=== PATIENT | female | born 1975 | race Caucasian/White ===

== ENCOUNTER 2017-01-06 14:32 | Inpatient (IN) | payer BC, OTHER ==
[~2017-01-06] VITALS: Ht 172.7 cm; Wt 86.3 kg
[2017-01-06] VITALS (12 sets, daily range): BP systolic 100–136; BP diastolic 62–85; PULSE 58–136; RESP 16–20; TEMP 98.1–98.8; O2SAT 98–100
[~2017-01-06 14:32] MED LIST: LORA-474 PO; Z.0.NO CURRENT MEDS; ZOFR4TAB3 SL
[2017-01-06] MEDS ORDERED: AMIODARONE INJ 150 MG in DEXTROSE 5% IN WATER 100ML INJ 97 ML IV ONE ×2 (15:00)
[2017-01-06] MEDS ORDERED: AMIODARONE INJ 900 MG in D5W 500 ML (EXCEL BAG) 482 ML IV SCH (15:00)
[2017-01-06 15:02] LABS: AUTOMATED NEUTROPHIL # 5.1 TH/MM3 (1.8-7.7); BASOPHIL # 0.3 TH/MM3 (0-0.2); BASOPHIL % 4.4 % (0.0-2.0); EOSINOPHIL # 0.1 TH/MM3 (0-0.4); EOSINOPHIL % 0.7 % (0.0-4.0); HEMO FLAGS DIFF FINAL; LYMPH % 21.4 % (9.0-44.0); LYMPHOCYTE # 1.7 TH/MM3 (1.0-4.8); MEAN CELL VOLUME 76.9 FL (80.0-100.0); MEAN CORPUSCULAR HGB CONC 32.5 % (32.0-36.0); MONO % 7.4 % (0.0-8.0); NEUT % 66.1 % (16.0-70.0); PLATELET COUNT 298 TH/MM3 (150-450); RED BLOOD COUNT 4.29 MIL/MM3 (4.00-5.30); RED CELL DISTRIBUTION WIDTH 17.1 % (11.6-17.2); WHITE BLOOD COUNT 7.8 TH/MM3 (4.0-11.0)
--- NOTE | 2017-01-06 15:03 | PD ---
HPI Chief Complaint: Cardiac Complaint Time Seen by Provider: 14:41 Travel History International Travel<30 days: No Contact w/Intl Traveler<30days: No Traveled to known affect area: No History of Present Illness HPI This patient is a critical care patient brought in by paramedics. She is a previously healthy 41-year-old who was exercising this morning when she became dizzy and lightheaded. Spell lasted about 5-10 minutes but resolved spontaneously with rest. She did well for a few hours during the middle of the day. She was picking her child up at school and she felt dizzy and lightheaded and felt like she was going to pass out. She had a presyncopal episode and a bystander saw her and called paramedics. They found her in A. fib with RVR that quickly deteriorated to wide complex ventricular tachycardia. She flipped in and out between those 2 rhythms several times. She was given 2 g IV magnesium. Her longest stretch was 58 beats of wide complex V. tach. Upon arrival she says she feels improved. She has A. fib with RVR rate of 1:30 and blood pressure 1:15 systolic. Symptoms are severe. Symptoms partially alleviated by rest and magnesium. Duration one day. She did not have any true syncope or chest pain PFSH Past Medical History Gastrointestinal Disorders: Yes (IBS) Inguinal Hernia: Yes (RT 1986) Migraines: Yes Seizures: Yes : 5 Para: 3 Miscarriage: 2 : 0 Past Surgical History Abdominal Surgery: Yes (R ING HERNIA) Cholecystectomy: Yes (04/09/2013) Other Surgery: Yes ( BREAST AUGMENTATION 2004 & 2010) Social History Alcohol Use: No Tobacco Use: No Substance Use: No Allergies-Medications (Allergen,Severity, Reaction): Coded Allergies: No Known Allergies (Verified , 06/04/13) Reported Meds & Prescriptions Reported Meds & Active Scripts Active Review of Systems General / Constitutional: No: Fever Eyes: No: Visual changes HENT: Positive: Lightheadedness, No: Headaches Cardiovascular: Positive: Palpitations, Irregular Rhythm, Tachycardia, No: Chest Pain or Discomfort Respiratory: No: Shortness of Breath Gastrointestinal: No: Abdominal Pain Genitourinary: No: Dysuria Musculoskeletal: Positive: Weakness, No: Pain Skin: No Rash Neurologic: Positive: Weakness, Dizziness Psychiatric: No: Depression Endocrine: No: Polydipsia Hematologic/Lymphatic: No: Easy Bruising Physical Exam Narrative GENERAL: Well-nourished, well-developed patient with generalized weakness and lightheadedness. SKIN: Warm and dry. HEAD: Atraumatic. Normocephalic. EYES: Pupils equal and round. No scleral icterus. No injection or drainage. ENT: No nasal bleeding or discharge. Mucous membranes pink and moist. NECK: Trachea midline. No JVD. CARDIOVASCULAR: Irregularly irregular rhythm. No murmur appreciated. Rate of 130 RESPIRATORY: No accessory muscle use. Clear to auscultation. Breath sounds equal bilaterally. GASTROINTESTINAL: Abdomen soft, non-tender, nondistended. Hepatic and splenic margins not palpable. MUSCULOSKELETAL: No obvious deformities. No clubbing. No cyanosis. No edema. NEUROLOGICAL: Awake and alert. No obvious cranial nerve deficits. Motor grossly within normal limits. Normal speech. PSYCHIATRIC: Appropriate mood and affect; insight and judgment normal. Data Data Last Documented VS Vital Signs Date Time Temp Pulse Resp B/P Pulse Ox O2 Delivery O2 Flow Rate FiO2 01/06/17 15:27 120 20 111/83 98 Room Air 01/06/17 15:14 2 01/06/17 14:35 98.8 Orders Iv Access Insert/Monitor (01/06/17 14:45) Complete Blood Count With Diff (01/06/17 14:45) Basic Metabolic Panel (Bmp) (01/06/17 14:45) Magnesium (Mg) (01/06/17 14:45) Bulk Sausage Casing Tier Off / Telemetry JOHN.Q8H (01/06/17 14:45) ^ Medication Alert (01/06/17 14:47) ^ Discontinue (01/06/17 14:47) Amiodarone Inj (Cordarone Inj) (01/06/17 15:00) Amiodarone Inj (Cordarone Inj) (01/06/17 15:00) Vital Signs (Adult) JOHN.Q4H (01/06/17 14:47) Admit Order (Ed Use Only) (01/06/17 15:32) Labs Laboratory Tests Test 01/06/17 14:51 White Blood Count 7.8 TH/MM3 Red Blood Count 4.29 MIL/MM3 Hemoglobin 10.7 GM/DL Hematocrit 33.0 % Mean Corpuscular Volume 76.9 FL Mean Corpuscular Hemoglobin 25.0 PG Mean Corpuscular Hemoglobin 32.5 % Concent Red Cell Distribution Width 17.1 % Platelet Count 298 TH/MM3 Mean Platelet Volume 8.4 FL Neutrophils (%) (Auto) 66.1 % Lymphocytes (%) (Auto) 21.4 % Monocytes (%) (Auto) 7.4 % Eosinophils (%) (Auto) 0.7 % Basophils (%) (Auto) 4.4 % Neutrophils # (Auto) 5.1 TH/MM3 Lymphocytes # (Auto) 1.7 TH/MM3 Monocytes # (Auto) 0.6 TH/MM3 Eosinophils # (Auto) 0.1 TH/MM3 Basophils # (Auto) 0.3 TH/MM3 CBC Comment DIFF FINAL Differential Comment Sodium Level 139 MEQ/L Potassium Level 3.6 MEQ/L Chloride Level 105 MEQ/L Carbon Dioxide Level 23.1 MEQ/L Anion Gap 11 MEQ/L Blood Urea Nitrogen 20 MG/DL Creatinine 0.89 MG/DL Estimat Glomerular Filtration 70 ML/MIN Rate Random Glucose 114 MG/DL Calcium Level 8.6 MG/DL Magnesium Level 2.3 MG/DL MDM Medical Decision Making Medical Screen Exam Complete: Yes Emergency Medical Condition: Yes Medical Record Reviewed: Yes Differential Diagnosis Ventricular tachycardia, A. fib with RVR, SVT Narrative Course I have reviewed the patient's electronic medical record. Patient was last in 2012 with gastroenteritis. I reviewed the stone mill operator cardiac tracings which do show A. fib with RVR intermixed with spells of wide complex ventricular tachycardia 2 IVs placed I reviewed her EKG which shows A. fib with RVR She is on constant telemetry monitoring which shows A. fib with RVR CBC is normal with Metabolic profile is normal Magnesium level is normal I initiated amiodarone bolus of 150 mg over 10 minutes followed by amiodarone drip protocol I reviewed the case in detail with sleeping bag filler on-call Dr. Jaylan Aadms who agrees with above management He recommends admission to [facility] at the main hospital and he will be a philatelic consultant Patient is critically ill with unstable arrhythmias. Therefore rechecking her frequently, multiple times. 3:30 PM her heart rate is 100 A. fib She is awake and alert and has had no ventricular tachycardia since initiation of amiodarone drip I reviewed with hospitalist who will admit and consult cardiology Critical Care Narrative Aggregate critical care time was 45 minutes. Time to perform other separately billable procedures was not included in the critical care time. My time did not include minutes spent treating any other patients simultaneously or on activities that did not directly contribute to the patient's treatment. The services I provided to this patient were to treat and/or prevent clinically significant deterioration that could result in: Cardiopulmonary arrest, congestive heart failure, I provided critical care services requiring my management, as noted below: Chart data review, documentation time, medication orders and management, vital sign assessments/reviewing monitor data, ordering and reviewing lab tests, ordering and interpreting/reviewing x-rays and diagnostic studies, care of the patient and discussion of the patient with the admitting physicians. Diagnosis Primary Impression: Ventricular tachycardia, paroxysmal Additional Impression: Atrial fibrillation with RVR Admitting Information Admitting Physician Requests: Eliel Renee MD Jan 06, 2017 15:03
[2017-01-06 15:08] LABS: POTASSIUM 3.6 MEQ/L (3.5-5.1)
[2017-01-06 15:11] LABS: BICARBONATE 23.1 MEQ/L (21.0-32.0); MAGNESIUM 2.3 MG/DL (1.5-2.5)
[2017-01-06] MEDS ORDERED: ACETAMINOPHEN 325 MG TAB PO PRN (16:15)
[2017-01-06] MEDS ORDERED: ONDANSETRON HCL 4 MG/2 ML VIAL IVP PRN (16:15)
[2017-01-06] MEDS ORDERED: SODIUM CHLORIDE 0.9% FLUSH 5 ML FLUSH FLUSH PRN (16:15)
[2017-01-06] MEDS ORDERED: NALOXONE HCL 0.4 MG/ML AMP IV PRN (16:15)
[2017-01-06] MEDS: diphenhydrAMINE HCL 25 MG CAP PO PRN (16:24)
--- NOTE | 2017-01-06 16:30 | HHI.HP ---
HPI Service [facility] Hospitalists Primary Care Physician No Primary Care Physician Admission Diagnosis new onset Afib with RVR and wide complex V tach Diagnoses: Chief Complaint: Palpitations mild SOB lightheadedness dizziness Travel History International Travel<30 Days: No Contact w/Intl Traveler <30 Da: No Traveled to Known Affected Are: No History of Present Illness 41-year-old female without any significant past medical history who presents to [facility] ED with complaints of lightheadedness, palpitations and mild shortness of breath 1 day. Patient reports she was in her usual state of health until earlier today during her boxing class when she developed lightheadedness causing her to sit down and rest. This resolved after about 5- 10 minutes and she went on with her day. She went to her daughter's school to pick her up and again developed lightheadedness, dizziness and a sensation that she was going to pass out. She states feeling that her heart was going to " come out of her chest". She admits to associated mild shortness of breath. She denies any chest pain. The school nurse called 911. Shortly after EMS arrived patient became nauseous and vomited. She's been having some irritation in the right eye and runny nose since she vomited. EMS found her in A. fib with RVR that quickly deteriorated to wide complex ventricular tachycardia. She flipped in and out between those 2 rhythms several times. She was given 2 g IV magnesium. Her longest stretch was 58 beats of wide complex V. tach. In the ED, she was started on Amiodarone drip. Patient reports that she feels well at this time. Review of Systems Constitutional: COMPLAINS OF: Dizziness (as stated in HPI), DENIES: Fatigue, Fever, Chills Endocrine: DENIES: Polydipsia, Polyuria, Polyphagia Eyes: COMPLAINS OF: Eye inflammation (right eye s/p episode of vomiting), DENIES: Diplopia, Vision loss Ears, nose, mouth, throat: COMPLAINS OF: Running Nose (after episode of vomiting), DENIES: Throat pain, Hoarseness Respiratory: COMPLAINS OF: Shortness of breath (mild, as stated in history of present illness), DENIES: Cough, Wheezing, Hemoptysis, Sputum production Cardiovascular: COMPLAINS OF: Palpitations, DENIES: Chest pain, Lower Extremity Edema, Orthopnea Gastrointestinal: COMPLAINS OF: Vomiting (single episode of nonbloody vomitus earlier today), DENIES: Abdominal pain, Black stools, Bloody stools, Constipation, Diarrhea Genitourinary: DENIES: Urgency, Hematuria, Dysuria Musculoskeletal: DENIES: Muscle aches, Joint Swelling, Back pain Integumentary: DENIES: Pruritus, Rash Hematologic/lymphatic: DENIES: Lymphadenopathy Immunologic/allergic: DENIES: Eczema, Urticaria Neurologic: DENIES: Headache, Localized weakness, Paresthesias, Seizures Psychiatric: DENIES: Confusion, Mood changes, Depression Past Family Social History Past Medical History Patient denies any significant past medical history however she reported to the ED that she also has a history of seizures and migraines Past Surgical History Right Inguinal hernia repair as a child Breast augmentation Cholecystectomy Reported Medications None Allergies: Coded Allergies: No Known Allergies (Verified , 06/04/13) Active Ordered Medications Current Medications Medications (Trade) Dose Ordered Sig/Kerry Route Start Time Stop Time Status Last Admin (Cordarone Inj/ D5W 500 ml (Br[place]comb Bag)) 500 ml @ 0 mls/hr CONTINUOUS IV 01/06/17 15:00 01/06/17 15:40 Family History Patient denies any significant cardiac family medical history Social History Patient denies any tobacco use, alcohol consumption or illicit drug use. Physical Exam Vital Signs Vital Signs Date Time Temp Pulse Resp B/P Pulse Ox O2 Delivery O2 Flow Rate FiO2 01/06/17 15:45 98 20 114/82 98 Room Air 01/06/17 15:27 120 20 111/83 98 Room Air 01/06/17 15:15 120 20 01/06/17 15:14 120 20 125/81 98 Room Air 2 01/06/17 14:35 98.8 136 20 136/76 98 Physical Exam GENERAL: This is a well-nourished, well-developed patient, in no apparent distress. A&Ox3. SKIN: No rashes, ecchymoses or lesions. Cool and dry. HEAD: Atraumatic. Normocephalic. No temporal or scalp tenderness. EYES: Pupils equal round and reactive. Extraocular motions intact. No scleral icterus. Mild right sided periorbital edema with tearing noted. ENT: Nose without bleeding, purulent drainage or septal hematoma. Throat without erythema, tonsillar hypertrophy or exudate. Uvula midline. Airway patent. NECK: Trachea midline. No lymphadenopathy. Supple, nontender, no meningeal signs. CARDIOVASCULAR: Tachycardiac. No murmurs, gallops, or rubs appreciated. RESPIRATORY: Clear to auscultation. Breath sounds equal bilaterally. No wheezes , rales, or rhonchi. GASTROINTESTINAL: Abdomen soft, non-tender, nondistended. No hepato-splenomegaly , or palpable masses. No guarding. MUSCULOSKELETAL: Extremities without clubbing, cyanosis, or edema. No joint tenderness, effusion, or edema noted. No calf tenderness. NEUROLOGICAL: Awake and alert. Cranial nerves II through XII intact. Motor and sensory grossly within normal limits. Five out of 5 muscle strength in all muscle groups. Normal speech. Laboratory Laboratory Tests Test 01/06/17 14:51 White Blood Count 7.8 Red Blood Count 4.29 Hemoglobin 10.7 Hematocrit 33.0 Mean Corpuscular Volume 76.9 Mean Corpuscular Hemoglobin 25.0 Mean Corpuscular Hemoglobin 32.5 Concent Red Cell Distribution Width 17.1 Platelet Count 298 Mean Platelet Volume 8.4 Neutrophils (%) (Auto) 66.1 Lymphocytes (%) (Auto) 21.4 Monocytes (%) (Auto) 7.4 Eosinophils (%) (Auto) 0.7 Basophils (%) (Auto) 4.4 Neutrophils # (Auto) 5.1 Lymphocytes # (Auto) 1.7 Monocytes # (Auto) 0.6 Eosinophils # (Auto) 0.1 Basophils # (Auto) 0.3 CBC Comment DIFF FINAL Differential Comment Sodium Level 139 Potassium Level 3.6 Chloride Level 105 Carbon Dioxide Level 23.1 Anion Gap 11 Blood Urea Nitrogen 20 Creatinine 0.89 Estimat Glomerular Filtration 70 Rate Random Glucose 114 Calcium Level 8.6 Magnesium Level 2.3 Result Diagram: 01/06/17 1451 01/06/17 1451 Assessment and Plan Assessment and Plan 41-year-old female without any significant past medical history who presents to [facility] ED with complaints of lightheadedness, palpitations and mild shortness of breath 1 day. Atrial fibrillation with RVR with deterioration to wide complex ventricular tachycardia - Admit to inpatient on continuous telemetry - currently rate controlled - Consult Cardiology - Continue with Amiodarone drip as started in ED - ASA daily - obtain TSH level - cycle cardiac enzymes Right eye edema/tearing - Benadryl prn DVT prophylaxis - SCD/JEF hose Written by Nadine Preston PA-C acting as scribe for Dr. Gómez on 01/06/17 at 16:35. All or portions of this note were transcribed by scribe [Nadine Preston PA-C] . I, Dr. Mary Gómez personally performed the history, physical exam, and medical decision making; and confirmed the accuracy of the information in the transcribed note. Authenticated by Dr. Mary Gómez on 01/06/17 at 16:32. Physician Certification 2 Midnight Certification Type: Admission for Inpatient Services Order for Inpatient Services The services are ordered in accordance with Medicare regulations or non- Medicare payer requirements, as applicable. In the case of services not specified as inpatient-only, they are appropriately provided as inpatient services in accordance with the 2-midnight benchmark. Estimated LOS (days): 3 days is the estimated time the patient will need to remain in the hospital, assuming treatment plan goals are met and no additional complications. Post-Hospital Plan: Not yet determined Nadine Preston Jan 06, 2017 16:30 Mary Gómez MD Jan 06, 2017 16:32
[2017-01-06] MEDS: ASPIRIN 325 MG TAB PO SCH (16:44)
[2017-01-06] MEDS: SODIUM CHLORIDE 0.9% FLUSH 5 ML FLUSH FLUSH SCH (21:00)
[2017-01-07] VITALS (24 sets, daily range): BP systolic 91–135; BP diastolic 58–85; PULSE 50–88; RESP 16; TEMP 98.4–99.2; O2SAT 96–100
[2017-01-07] MEDS: diphenhydrAMINE HCL 25 MG CAP PO PRN (01:14)
[2017-01-07 03:35] LABS: AUTOMATED NEUTROPHIL # 3.6 TH/MM3 (1.8-7.7); BASOPHIL % 0.7 % (0.0-2.0); EOSINOPHIL # 0.1 TH/MM3 (0-0.4); EOSINOPHIL % 1.7 % (0.0-4.0); HEMATOCRIT 30.8 % (35.0-46.0); HEMO FLAGS DIFF FINAL; LYMPH % 28.8 % (9.0-44.0); LYMPHOCYTE # 1.8 TH/MM3 (1.0-4.8); MEAN CELL VOLUME 76.5 FL (80.0-100.0); MEAN CORPUSCULAR HEMOGLOBIN 25.2 PG (27.0-34.0); MONO % 11.6 % (0.0-8.0); NEUT % 57.2 % (16.0-70.0); PLATELET COUNT 279 TH/MM3 (150-450); RED BLOOD COUNT 4.02 MIL/MM3 (4.00-5.30); RED CELL DISTRIBUTION WIDTH 17.9 % (11.6-17.2); WHITE BLOOD COUNT 6.3 TH/MM3 (4.0-11.0)
[2017-01-07 04:03] LABS: BICARBONATE 25.4 MEQ/L (21.0-32.0); POTASSIUM 3.8 MEQ/L (3.5-5.1)
[2017-01-07] MEDS: SODIUM CHLORIDE 0.9% FLUSH 5 ML FLUSH FLUSH SCH ×2 (09:00→21:56)
--- NOTE | 2017-01-07 09:10 | HHI.PR ---
Subjective Remarks Follow up for atrial fibrillation, ventricular tachycardia. Patient is currently doing well. Denies any chest pain, shortness of breath, fever or chills. No further episodes of atrial fibrillation or ventricular tachycardia. Objective Vitals Vital Signs Date Time Temp Pulse Resp B/P Pulse Ox O2 Delivery O2 Flow Rate FiO2 01/07/17 06:00 57 01/07/17 05:00 58 01/07/17 04:00 56 01/07/17 03:00 56 01/07/17 03:00 98.5 56 16 91/60 96 01/07/17 02:00 57 01/07/17 01:00 59 01/07/17 00:00 60 01/06/17 23:00 98.1 62 16 100/62 100 01/06/17 23:00 58 01/06/17 22:00 66 01/06/17 21:00 66 01/06/17 20:30 98.6 68 16 113/74 100 01/06/17 19:04 78 20 113/72 98 Room Air 01/06/17 18:00 82 20 112/80 01/06/17 17:19 88 18 111/68 98 Room Air 01/06/17 16:27 115 20 131/85 98 Room Air 01/06/17 15:45 98 20 114/82 98 Room Air 01/06/17 15:27 120 20 111/83 98 Room Air 01/06/17 15:15 120 20 01/06/17 15:14 120 20 125/81 98 Room Air 2 01/06/17 14:35 98.8 136 20 136/76 98 I/O 01/06/17 01/06/17 01/06/17 01/07/17 01/07/17 01/07/17 07:00 15:00 23:00 07:00 15:00 23:00 Intake Total 624 ml Output Total 450 ml Balance 174 ml Intake Oral 300 ml IV Total 324 ml Output Urine Total 450 ml # Bowel Movements 1 Result Diagram: 01/07/17 03201/07/17 032 Objective Remarks GENERAL: Alert, oriented 3, NAD. SKIN: Warm and dry. HEAD: Normocephalic. EYES: No scleral icterus. No injection or drainage. NECK: Supple, trachea midline. No JVD or lymphadenopathy. CARDIOVASCULAR: Regular rate and rhythm without murmurs, gallops, or rubs. RESPIRATORY: Breath sounds equal bilaterally. No accessory muscle use. GASTROINTESTINAL: Abdomen soft, non-tender, nondistended. MUSCULOSKELETAL: No cyanosis, or edema. BACK: Nontender without obvious deformity. No CVA tenderness. Procedures None A/P Problem List: (1) Ventricular tachycardia, paroxysmal ICD Code: I47.2 Status: Acute (2) Atrial fibrillation with RVR ICD Code: I48.91 Status: Acute Assessment and Plan Ms. Harper is a pleasant 41-year-old female with no significant medical history weak to the hospital on 01/06/2017 with complaints of lightheadedness, palpitation, shortness of breath. She experienced lightheaded and dizziness and overall near syncope multiple times. She also had nausea and vomiting prior to coming to the hospital. She was found to have atrial fibrillation with RVR that quickly deteriorated to wide complex tachycardia. She was given 2 g of IV magnesium and she was started on amiodarone drip in the ED. Cardiology was consulted. - Ventricular tachycardia - Atrial fibrillation - Troponins 0.02, 0.03, 0.02. TSH 1.550. - K+ 3.8, Mg 2.3. - Cardiology consult pending. Patient may need ischemic work up. - Microcytic anemia - Hgb 10.7, 10.1. - Will add iron studies. If Iron sat proves to be low, we will start patient on Iron supplementation. - Seasonal allergies - will start patient on Cetirizine. Full code. SCDs. Telemetry for dysrhythmia. Naima Waite DO Jan 07, 2017 9:10 am
[2017-01-07] MEDS: CETIRIZINE HCL 10 MG TAB PO SCH (09:20)
[2017-01-07] MEDS: ASPIRIN 325 MG TAB PO SCH (09:20)
[2017-01-07 14:18] LABS: TRANSFERRIN IRON PROFILE 274 MG/DL (200-360)
--- NOTE | 2017-01-07 14:51 | PD.CONS ---
HPI Service Cardiology Consult Requested By IM Primary Care Physician No Primary Care Physician History of Present Illness Past Family Social History Allergies: Coded Allergies: No Known Allergies (Verified , 06/04/13) Reported Medications Reported Meds & Active Scripts Active Active Ordered Medications Current Medications Medications (Trade) Dose Ordered Sig/Kerry Route Start Time Stop Time Status Last Admin (Cordarone Inj/ D5W 500 ml ([place] Bag)) 500 ml @ 0 mls/hr CONTINUOUS IV 01/06/17 15:00 01/06/17 15:40 (NS Flush) 2 ml UNSCH PRN FLUSH 01/06/17 16:15 (NS Flush) 2 ml BID FLUSH 01/06/17 21:00 (Tylenol) 650 mg Q4H PRN PO 01/06/17 16:15 01/06/17 18:45 (Zofran Inj) 4 mg Q6H PRN IVP 01/06/17 16:15 01/06/17 19:39 (Narcan Inj) 0.4 mg UNSCH PRN IV 01/06/17 16:15 (Benadryl) 25 mg Q6H PRN PO 01/06/17 16:15 01/07/17 01:14 (Aspirin) 325 mg DAILY PO 01/06/17 16:15 01/07/17 09:20 (ZyrTEC) 10 mg DAILY PO 01/07/17 09:15 01/07/17 09:20 (Lopressor) 12.5 mg Q12HR PO 01/07/17 14:45 UNV Physical Exam Vital Signs Vital Signs Date Time Temp Pulse Resp B/P Pulse Ox O2 Delivery O2 Flow Rate FiO2 01/07/17 11:50 63 01/07/17 11:50 98.9 63 16 135/85 100 01/07/17 07:30 70 01/07/17 07:30 99.2 70 16 111/72 100 01/07/17 06:00 57 01/07/17 05:00 58 01/07/17 04:00 56 01/07/17 03:00 56 01/07/17 03:00 98.5 56 16 91/60 96 01/07/17 02:00 57 01/07/17 01:00 59 01/07/17 00:00 60 01/06/17 23:00 98.1 62 16 100/62 100 01/06/17 23:00 58 01/06/17 22:00 66 01/06/17 21:00 66 01/06/17 20:30 98.6 68 16 113/74 100 01/06/17 19:04 78 20 113/72 98 Room Air 01/06/17 18:00 82 20 112/80 01/06/17 17:19 88 18 111/68 98 Room Air 01/06/17 16:27 115 20 131/85 98 Room Air 01/06/17 15:45 98 20 114/82 98 Room Air 01/06/17 15:27 120 20 111/83 98 Room Air 01/06/17 15:15 120 20 01/06/17 15:14 120 20 125/81 98 Room Air 2 Laboratory Laboratory Tests Test 01/06/17 01/06/17 01/07/17 14:51 21:15 03:20 White Blood Count 7.8 6.3 Red Blood Count 4.29 4.02 Hemoglobin 10.7 10.1 Hematocrit 33.0 30.8 Mean Corpuscular Volume 76.9 76.5 Mean Corpuscular Hemoglobin 25.0 25.2 Mean Corpuscular Hemoglobin 32.5 33.0 Concent Red Cell Distribution Width 17.1 17.9 Platelet Count 298 279 Mean Platelet Volume 8.4 8.1 Neutrophils (%) (Auto) 66.1 57.2 Lymphocytes (%) (Auto) 21.4 28.8 Monocytes (%) (Auto) 7.4 11.6 Eosinophils (%) (Auto) 0.7 1.7 Basophils (%) (Auto) 4.4 0.7 Neutrophils # (Auto) 5.1 3.6 Lymphocytes # (Auto) 1.7 1.8 Monocytes # (Auto) 0.6 0.7 Eosinophils # (Auto) 0.1 0.1 Basophils # (Auto) 0.3 0.0 CBC Comment DIFF FINAL DIFF FINAL Differential Comment Sodium Level 139 142 Potassium Level 3.6 3.8 Chloride Level 105 109 Carbon Dioxide Level 23.1 25.4 Anion Gap 11 8 Blood Urea Nitrogen 20 13 Creatinine 0.89 0.85 Estimat Glomerular Filtration 70 74 Rate Random Glucose 114 81 Calcium Level 8.6 8.3 Magnesium Level 2.3 Troponin I 0.02 0.03 0.02 Iron Level 105 Total Iron Binding Capacity 384 Percent Iron Saturation 27.4 Thyroid Stimulating Hormone 1.550 3rd Gen Result Diagram: 01/07/1731901/07/17319 Domingo Mauricio MD Jan 07, 2017 14:51 Total Iron Binding Capacity 384 Percent Iron Saturation 27.4 Thyroid Stimulating Hormone 1.550 3rd Gen Result Diagram: 01/07/1731901/07/17319 Domingo Mauricio MD Jan 07, 2017 14:51
[2017-01-07] MEDS ORDERED: PILL SPLITTER OTHER PRN (15:00)
[2017-01-07] MEDS ORDERED: AMIODARONE INJ 450 MG in DEXTROSE 5% IN WATE(EXCEL) INJ 241 ML IV SCH ×2 (15:19)
[2017-01-07 15:26] LABS: AMPHETAMINE, URINE NEG (NEG); BARBITURATES, URINE NEG (NEG); COCAINE, URINE NEG (NEG)
[2017-01-07] MEDS: METOPROLOL TARTRATE 25 MG TAB PO SCH ×2 (15:30→21:23)
[2017-01-07] MEDS ORDERED: IOHEXOL 350 MG/ML 100 ML BTL (for Cath Lab) OTHER ONE (15:36)
[2017-01-07] MEDS ORDERED: MIDAZOLAM HCL 2 MG/2 ML VIAL ONE (15:39)
[2017-01-07] MEDS ORDERED: HEPARIN-NS/PF INJ 500 ML ONE (15:39)
[2017-01-07] MEDS ORDERED: HEPARIN SODIUM - IV 10,000 UNITS/10 ML VIAL ONE (15:40)
[2017-01-07] MEDS ORDERED: VERAPAMIL HCL 5 MG/2 ML VIAL ONE (15:40)
[2017-01-07 15:50] LABS: BETA HCG QUANT LESS THAN 1 MIU/ML (0-5)
--- NOTE | 2017-01-07 17:41 | MB ---
cc: NEELIMA YU MD DATE OF CONSULTATION: 01/07/2017 DATE OF : 1975 REASON FOR CONSULTATION Ventricular tachycardia symptomatic HISTORY OF PRESENT ILLNESS 41-year-old female with no significant past medical history that was admitted to the cardiac unit after an episode of symptomatic ventricular tachycardia. The patient reports she was in her usual state of health until yesterday after a boxing class when she started feeling dizzy with palpitations. This resolved in about ten minutes. However, she had a recurrent episode later in the day. However, this time she had the sensation that she was going to pass out and also some shortness of breath. EMS was called in and she was found to be in atrial fibrillation with rapid ventricular response followed by ventricular tachycardia. The patient vomited. The arrhythmia resolved by itself. She got magnesium and amiodarone on arrival to the emergency department. Today she reports feeling well. She denies any chest pain, shortness of breath, PND, leg edema, caffeinated drinks, pre workup drinks, chest trauma. She does have anxiety at work and at home. She denies any illicit drug use. Cardiology has been consulted for further evaluation of wide complex tachycardia. REVIEW OF SYSTEMS Negative except for what is mentioned in HPI. PAST MEDICAL HISTORY Unremarkable. PAST SURGICAL HISTORY 1. Right inguinal hernia. 2. Breast augmentation. 3. Cholecystectomy. REPORTED MEDICATIONS: None. ALLERGIES NO KNOWN DRUG ALLERGIES. FAMILY HISTORY She does have a history of coronary artery disease later in her family with bypass surgery on her mother's side. SOCIAL HISTORY: She denies any illicit drug use, tobacco use, as well as any pre workout beverages, or use of caffeinated drinks such as Red Bull. PHYSICAL EXAMINATION Vital signs: Temperature 98.8, respiratory rate 16, heart rate 63, blood pressure 135/85. She is on O2 sat 100% RA GENERAL: She is awake, alert, oriented x3 in no acute distress. Neck: No JVD, no carotid bruits. Heart: Regular rate and rhythm. No murmurs, rubs or gallops. Lungs: Clear to auscultation bilaterally. No wheezes, rhonchi or rales. Abdomen: Soft, nontender, nondistended with positive bowel sounds. Extremities: There is no cyanosis or edema, pulses throughout. LABORATORY DATA: CBC, hemoglobin 10, hematocrit 30, platelet count 279. Electrolytes: Sodium 142, potassium 3.8, BUN 13, creatinine 0.85, troponin 0.02 , 0.03, 0.02. TSH 1.5. Toxicology has not been done. Echocardiogram is pending. The strip of the EMS shows atrial fibrillation with rapid ventricular response which evolved into a wide complex ventricular tachycardia. ASSESSMENT/PLAN 41-year-old female admitted with a wide complex tachycardia and atrial fibrillation with RVR no identifiable reversible causes. She currently is hemodynamically stable now in sinus rhythm with an amiodarone drip. She reports feeling well. She has no acute cardiac complaints. I think it will be reasonable, given her presentation (ventricular tachycardia) to rule out cardiac ischemia. The risks and benefits of left heart catheterization intervention, including but not limited to bleeding, infection, acute kidney injury, stroke, heart attack, emergent bypass surgery and has been explained to the patient. The patient understands the risks and is willing to proceed. The patient should be started on Lopressor 12.5 milligrams p.o. daily. She should have a toxicology screen done as well as an HCG. Given new onset VT, if no she should refrain from driving motor vehicles until cardiac work-up completed. RECOMMENDATIONS: 1. Keep n.p.o. for left heart catheterization today . 2. Follow echocardiogram results. 3. Start Lopressor 12.5 mg p.o. b.i.d. 4. Consult EP Dr. Benites for further recommendations. 5. Toxicology screen Thank you for the opportunity to take part in the care of this patient. Further therapy to be determined. MD ZAKI Solo/DANIELLE /3:07 PM /4:29 PM TOYA
--- NOTE | 2017-01-07 17:41 | MA ---
cc: DOMINGO YU MD DATE 01/07/17 1975 PROCEDURES PERFORMED 1. Left heart catheterization 2. Selective right and left coronary angiography 3. Left ventriculogram APPROACH Right transradial DESCRIPTION OF PROCEDURE Consent signed. The patient was brought into the cardiac laborer salvage in a fasting state. The right wrist was prepped and draped in sterile fashion. Using 1% lidocaine for local anesthesia and a micropuncture kit, a 6-Guyanese sheath was inserted into the right radial artery. Antispasmodic cocktail given. Then selective right and left coronary angiography was performed with JR-4 and a JL- 3.5 diagnostic catheters. Angiography was taken in multiple views. An angled pigtail over a wire was introduced into the left ventricle followed by pressure recordings, ventriculogram and pullback. The patient tolerated the procedure well without complications. Estimated blood loss less than 30 mL. Total contrast used 80 mL. The right radial access site was closed with a TR band. RESULTS LEFT VENTRICLE The left ventricular pressure was 88/6 with an LVEDP of 12. The aortic pressure was 82/56 with a mean of 68. There was no gradient upon pullback from the left ventricle to the aorta. LEFT VENTRICULOGRAM shows a symmetrically nathan ventricle with an estimated ejection fraction of 60%. ANGIOGRAPHIC RESULTS 1. Left main - none. The patient has separate coronary ostia. 2. LAD is a transapical vessel, is patent with nonobstructive coronary artery disease and TAMIKO III flow and has diagonals are also patent with TAMIKO III flow. 3. Circumflex - Patent with TAMIKO III flow with non obstructive coronary artery disease. Has a prominent OM1, OM2 which are patent. The patient has a has a left dominant system. The PDA is giving out by the left circumflex artery. The PDA is patent with coronary artery disease. 4. The right coronary artery is a nondominant vessel, has a prominent RV branch and posterolateral branches and no obstructive coronary artery disease. CONCLUSION 1. Normal coronary arteries 2. Normal left ventricular systolic function. RECOMMENDATIONS Continue medical management. The patient will be consulted to Dr. Benites for electrophysiology study and further recommendations. Domingo Yu MD CALL OUT OPERATOR/ /4:42 PM /5:29 PM TOYA
--- NOTE | 2017-01-07 20:15 | MB ---
cc: MADELIN PUNETE HANSCY M.D. DATE OF CONSULTATION 01/07/2017 Electrophysiology consult. REASON FOR CONSULTATION Wide complex tachyarrhythmia. HISTORY OF THE PRESENT ILLNESS Mrs. Harper is a 41-year-old female, very active, boxing, previous cholecystectomy and right inguinal hernia repair. No toxic habits. No taking any supplements. She was having for the past couple of weeks on and off tachyarrhythmia. Yesterday she went to exercise, boxing. She was having palpitation. She took a break and then subsequently later on was moving some weights. She began again and palpitation. That was resolved. She decided to drive to her daughter's school and then at that point she felt like she was going to pass out. Called 911. Was brought to the emergency room. During transportation she developed a wide complex tachyarrhythmia, very irregular. Subsequently rate decreased and the patient went into atrial fibrillation with rapid ventricular response. During the hospitalization ventricular tachyarrhythmia suspected. The left heart catheterization was performed by Dr. Carlson and showed normal ejection fraction. No significant occlusion. I was consulted for evaluation and management. The chart was reviewed. The patient was evaluated. I discussed the case extensively with Dr. Carlson over the phone. I did recommend at that time left heart catheterization, and I discussed the case extensively with her , her mother and her family. ALLERGIES None reported. SOCIAL HISTORY I mentioned before she has a drink maybe once a month. FAMILY HISTORY Noncontributory to her current medical condition. MEDICATIONS AT HOME She was taking none. Currently in the hospital she is on: 1. Amiodarone. 2. Metoprolol. 3. Zofran. REVIEW OF SYSTEMS She refers no chest pain. No palpitation. No vomiting. No fever since hospitalization. PHYSICAL EXAMINATION GENERAL: Alert and fully oriented. In bed. Pleasant. VITAL SIGNS: Blood pressure 112/69, pulse 63, respiratory rate 18. LUNGS: Ventilated. CARDIOVASCULAR: S1-S2. No gallops. No murmur. ABDOMEN: Soft. No mass. EXTREMITIES: With no edema. Electrocardiogram showed atrial fibrillation with rapid ventricular response. EVAC showed wide complex tachyarrhythmia. Rate was around 180-200 beats per minute. LABORATORY DATA Hemoglobin 10.1, white blood cell 6.3. Potassium 3.8, creatinine 0.85. Troponin 0.03. TSH 1.55. test was negative. ASSESSMENT AND RECOMMENDATIONS Mrs. Harper has recurrent episodes of tachyarrhythmia. Those episodes . She was very active in high school and never had those episodes of palpations in high school. She had a wide complex tachyarrhythmia. She has no coronary abnormalities. When the tachyarrhythmia slowed down the patient apparently has atrial fibrillation with rapid ventricular response. That may be not ventricular tachycardia. That may be atrial fibrillation with aberrancy. Electrocardiogram showed no pre-excitation. Telemetry currently shows sinus rhythm. My recommendation at this point is I am going to DC the amiodarone. I am going to keep her on metoprolol. I recommend observation versus electrophysiology study. The patient and family opt for electrophysiology study. If tachyarrhythmia induced, further decision will be taken. If this is atrial fibrillation I will need to anticoagulate her before the procedure. The risks, the nature and the benefit of the procedure are clearly stated to them. The risks include pneumothorax, cardiac perforation, stroke and even . She understood and agreed to proceed. Procedure will be performed in the morning. MD DAVID Shepard/BRIA /6:24 PM 7:59 PM
[2017-01-07] MEDS ORDERED: BACITRACIN OINT 0.9 GM PKT ONE (20:31)
[2017-01-07] MEDS ORDERED: SODIUM CHLORID 0.9% 500 ML IV SCH (23:45)
[2017-01-07] MEDS ORDERED: INSULIN HUMAN REGULAR 1,000 UNITS/10 ML VIAL SQ PRN (23:45)
[2017-01-07] MEDS ORDERED: METOPROLOL TARTRATE 25 MG TAB PO PRN (23:45)
[2017-01-07] MEDS ORDERED: LACTATED RINGER'S 1000 ML IV SCH (23:45)
[2017-01-08] VITALS (17 sets, daily range): BP systolic 99–107; BP diastolic 59–71; PULSE 45–83; RESP 16–18; TEMP 97.8–98.3; O2SAT 96–100
[2017-01-08] MEDS ORDERED: HEPARIN-NS/PF INJ 500 ML ONE (07:13)
[2017-01-08] MEDS ORDERED: ISOPROTERENOL HCL 1 MG/5 ML AMP ONE (07:34)
[2017-01-08] MEDS ORDERED: MIDAZOLAM HCL 2 MG/2 ML VIAL ONE (08:26)
[2017-01-08] MEDS: METOPROLOL TARTRATE 25 MG TAB PO SCH (09:00)
[2017-01-08] MEDS: SODIUM CHLORIDE 0.9% FLUSH 5 ML FLUSH FLUSH SCH (09:00)
[2017-01-08] MEDS: CETIRIZINE HCL 10 MG TAB PO SCH (09:00)
[2017-01-08] MEDS ORDERED: METO25TA6 PO (11:50)
[2017-01-08] MEDS ORDERED: ASPI81TA11 PO (11:50)
--- NOTE | 2017-01-08 11:52 | HHI.DS ---
Discharge Summary Admission Date Jan 06, 2017 at 3:33 pm Discharge Date: Jan 08, 2017 Admitting Diagnosis new onset Afib with RVR and wide complex V tach (1) Ventricular tachycardia, paroxysmal ICD Code: I47.2 (2) Atrial fibrillation with RVR ICD Code: I48.91 Diagnosis: Principal Procedures None Brief History - From Admission 41-year-old female without any significant past medical history who presents to [facility] ED with complaints of lightheadedness, palpitations and mild shortness of breath 1 day. Patient reports she was in her usual state of health until earlier today during her boxing class when she developed lightheadedness causing her to sit down and rest. This resolved after about 5- 10 minutes and she went on with her day. She went to her daughter's school to pick her up and again developed lightheadedness, dizziness and a sensation that she was going to pass out. She states feeling that her heart was going to " come out of her chest". She admits to associated mild shortness of breath. She denies any chest pain. The school nurse called 911. Shortly after EMS arrived patient became nauseous and vomited. She's been having some irritation in the right eye and runny nose since she vomited. EMS found her in A. fib with RVR that quickly deteriorated to wide complex ventricular tachycardia. She flipped in and out between those 2 rhythms several times. She was given 2 g IV magnesium. Her longest stretch was 58 beats of wide complex V. tach. In the ED, she was started on Amiodarone drip. Patient reports that she feels well at this time. CBC/BMP: 01/07/17 0320 01/07/17 0320 Significant Findings Laboratory Tests Test 01/06/17 01/07/17 14:51 03:20 Hemoglobin 10.7 GM/DL 10.1 GM/DL (11.6-15.3) (11.6-15.3) Hematocrit 33.0 % 30.8 % (35.0-46.0) (35.0-46.0) Mean Corpuscular Volume 76.9 FL 76.5 FL (80.0-100.0) (80.0-100.0) Mean Corpuscular Hemoglobin 25.0 PG 25.2 PG (27.0-34.0) (27.0-34.0) Basophils (%) (Auto) 4.4 % (0.0-2.0) Basophils # (Auto) 0.3 TH/MM3 (0-0.2) Blood Urea Nitrogen 20 MG/DL (7-18) Estimat Glomerular Filtration 70 ML/MIN (>89) 74 ML/MIN (>89) Rate Random Glucose 114 MG/DL (74-106) Red Cell Distribution Width 17.9 % (11.6-17.2) Monocytes (%) (Auto) 11.6 % (0.0-8.0) Chloride Level 109 MEQ/L (98-107) Calcium Level 8.3 MG/DL (8.5-10.1) PE at Discharge GENERAL: Alert, oriented 3, NAD. SKIN: Warm and dry. HEAD: Normocephalic. EYES: No scleral icterus. No injection or drainage. NECK: Supple, trachea midline. No JVD or lymphadenopathy. CARDIOVASCULAR: Regular rate and rhythm without murmurs, gallops, or rubs. RESPIRATORY: Breath sounds equal bilaterally. No accessory muscle use. GASTROINTESTINAL: Abdomen soft, non-tender, nondistended. MUSCULOSKELETAL: No cyanosis, or edema. BACK: Nontender without obvious deformity. No CVA tenderness. Pt update on day of discharge Ms. Harper is doing well. EP study was done - no significant findings. Dr. Benites discussed with patient at length. Event monitor will be arranged for her and patient will follow up with Dr. Benites. Hospital Course Ms. Harper is a pleasant 41-year-old female with no significant medical history weak to the hospital on 01/06/2017 with complaints of lightheadedness, palpitation, shortness of breath. She experienced lightheaded and dizziness and overall near syncope multiple times. She also had nausea and vomiting prior to coming to the hospital. She was found to have atrial fibrillation with RVR that quickly deteriorated to wide complex tachycardia. She was given 2 g of IV magnesium and she was started on amiodarone drip in the ED. Cardiology was consulted. - Ventricular tachycardia - Atrial fibrillation - Troponins 0.02, 0.03, 0.02. TSH 1.550. - K+ 3.8, Mg 2.3. - Cardiac cath - normal. EP study shows no significant findings. - Microcytic anemia - Hgb 10.7, 10.1. - Iron sat 27.4%. - Seasonal allergies - Continue Cetirizine. Discharge patient on aspirin and metoprolol. Event monitor will be arranged. Patient was advised not to drive for 6 months. Pt Condition on Discharge: Good Discharge Disposition: Discharge Home Discharge Time: > 30 minutes Discharge Instructions DIET: Follow Instructions for: As Tolerated, No Restrictions Activities you can perform: Regular-No Restrictions Other Activity Instructions: No driving for 6 months. Follow up Referrals: Cardiology - 3 Weeks with Mana Benites MD New Medications: Aspirin DR (Aspirin EC) 81 Mg Tabdr 81 MG PO DAILY Blood Clot Prevention #90 Ref 0 TAB Metoprolol Succinate ER 24 HR (Metoprolol Succinate ER 24 HR) 25 Mg Tab 12.5 MG PO DAILY Afib #30 Ref 3 TAB Naima Waite DO Jan 08, 2017 11:52 am
--- NOTE | 2017-01-09 06:01 | MA ---
cc: SABINE STEVE M.D. DATE 01/08/2017 PROCEDURE PERFORMED Electrophysiology study, CS cannulation, repeat electrophysiology study on Isuprel infusion. INDICATIONS Ms. Harper is a 41-year-old female, very active, who was presenting in the past couple of months with episodes of palpitations and dizziness. Yesterday she was driving, had an episode of dizziness and near-syncope. She was found in wide complex tachyarrhythmia and subsequently atrial fibrillation. Left heart catheterization indicated no occlusion and no ischemia, normal ejection fraction. She is to undergo electrophysiology study. The risks, the nature and the benefit of the procedure are clearly stated to her and her family. The risks include pneumothorax, cardiac perforation, stroke and even . She understood and agreed to proceed. PROCEDURE After written informed consent was obtained, the patient was brought to the EP Lab where he was prepped and draped in the usual sterile fashion. Conscious sedation was initiated and maintained throughout the procedure by the anesthesiologist. Once sedation was verified, the right and left inguinal area was anesthetized with 2% Xylocaine. Using modified Seldinger technique, the left femoral vein was cannulated on three occasions. Three guidewires were advanced over the wire. Two 5-Yi Hemaquets were advanced. Then the right femoral vein was cannulated on two occasions and two guidewires were advanced. Over the wire, a 6 and an 8-Yi Hemaquet were advanced. Then under fluoroscopic guidance through the 5 and 6-Yi Hemaquet, four 5-Yi Karely curved quadripolar electrophysiology catheters were placed and positioned on the His, upper right atrium, coronary sinus and right ventricular apex. Basic intervals were measured. They were within normal limits. At this point atrial pacing protocol was performed. Atrial pacing protocol consisted of incremental atrial pacing as well as program stimulation with 110 cycle length and up to one extrastimuli delivered. No tachyarrhythmia was induced. Atrial pacing protocol was performed at the upper right atrium as well as coronary sinus. I did coronary sinus . No tachyarrhythmia was induced. No preexcitation seen. Then ventricular pacing protocol was performed. There was no VA at baseline. There was VA on Isuprel. No tachyarrhythmia was induced. Then Isuprel was infused at 4 mcg. No tachyarrhythmia was induced. Atrial and ventricular pacing protocol was repeated. Then Isuprel was discontinued and atrial and ventricular protocol was performed again no tachyarrhythmia was induced. At that point the procedure was complete. All catheters were removed. The patient going to be transferred to the recovery room. No incident reported. The patient tolerated procedure. Blood loss minimal. 1. Electrocardiogram: At baseline the patient was in sinus. Postprocedure electrocardiogram was unchanged. 2. Basic Interval: Base cycle length was around 900 milliseconds, AH at 90 and HV was around 46 milliseconds. 3. Atrial Pacing Protocol: Wenckebach at baseline was around 500, milliseconds. On Isuprel it was around 260 milliseconds. No tachyarrhythmia was induced. 4. Ventricular Pacing Protocol: There was no V at baseline. There was V on Isuprel and post-Isuprel. No tachyarrhythmia was induced. CONCLUSION Negative electrophysiology study for supraventricular tachyarrhythmia. No preexcitation. COMMENT AND RECOMMENDATIONS At this point I am not sure if this atrial fibrillation is a primary cause. It looks like Ms. Harper has possible atrial fibrillation with aberrancy, on activity. There is no indication she . For now, I would discuss with the patient the option of event recorder for 30 days versus loop insertion. If any tachyarrhythmia is diagnosed or if she presents again with atrial fibrillation, then ablation will be performed. She was put on beta-sarthak, metoprolol ER 25 mg once per day. Patient advised not to drive for the next six months. MD DAVID Shepard/REX /11:19 PM /5:32 AM
[2017-01-09] MEDS ORDERED: ASPIRIN 81 MG CHEW TAB PO SCH (09:00)
== END 2017-01-08 13:43 | disposition home or self-care (01) | DRG 274 ==
LOC: PHED 14:32 → PHEDA 15:33 → HCIN 20:20
PROVIDERS: ADMIT Hospitalist; ATTEND Hospitalist
PROC: 4A023N7 Measurement of Cardiac Sampling and Pressure, Left Heart, Percutaneous Approach (ICD-10-PCS; 2017-01-07)
PROC: B2111ZZ Fluoroscopy of Multiple Coronary Arteries using Low Osmolar Contrast (ICD-10-PCS; 2017-01-07)
PROC: B2151ZZ Fluoroscopy of Left Heart using Low Osmolar Contrast (ICD-10-PCS; 2017-01-07)
PROC: 4A0234Z Measurement of Cardiac Electrical Activity, Percutaneous Approach (ICD-10-PCS; 2017-01-08)
PROC: 4A023FZ Measurement of Cardiac Rhythm, Percutaneous Approach (ICD-10-PCS; principal; 2017-01-08 09:30)
DX: I47.2 Ventricular tachycardia (principal); D50.9 Iron deficiency anemia, unspecified; I25.10 Atherosclerotic heart disease of native coronary artery without angina pectoris; F41.9 Anxiety disorder, unspecified; K58.9 Irritable bowel syndrome, unspecified; I48.91 Unspecified atrial fibrillation; H05.221 Edema of right orbit; J30.2 Other seasonal allergic rhinitis; Z82.49 Family history of ischemic heart disease and other diseases of the circulatory system
CPT/HCPCS: 80048; 80307; 83540; 83550; 83735; 84443; 84484; 84702; 85025; 93458; 93620; 93623; 96365; C1730; C1732; C1769; C1893; J0282; J1644; J2250; J2405; J3010; J7060; Q9967

== ENCOUNTER 2017-02-10 21:40 | Observation (INO) | payer BC ==
[~2017-02-10] VITALS: Ht 175.3 cm; Wt 87.0 kg
[~2017-02-10 21:40] MED LIST changes: +ASPI81TA11 PO; -LORA-474 PO; +METO25TA6 PO; -Z.0.NO CURRENT MEDS; -ZOFR4TAB3 SL
[2017-02-10 21:42] VITALS: BP 137/89; PULSE 78; RESP 16; TEMP 99; O2SAT 100
[2017-02-10 23:00] VITALS: RESP 16; O2SAT 100
--- NOTE | 2017-02-10 23:28 | RADRPT ---
EXAM DATE/TIME: 02/10/2017 23:04 [facility] COMPARISON: No previous studies available for comparison. INDICATIONS : Chest pain. MEDICAL HISTORY : None. SURGICAL HISTORY : None. ENCOUNTER: Initial ACUITY: 1 day PAIN SCORE: 0/10 LOCATION: Bilateral chest FINDINGS: A single view of the chest demonstrates the lungs to be symmetrically aerated without evidence of mas s, infiltrate or effusion. The cardiomediastinal contours are unremarkable. Osseous structures are intact. CONCLUSION: No acute disease. Herb Carlson MD on February 10, 2017 at 23:26 Board Certified Radiologist. This report was verified electronically.
[2017-02-10 23:29] LABS: AUTOMATED NEUTROPHIL # 5.6 TH/MM3 (1.8-7.7); BASOPHIL # 0.1 TH/MM3 (0-0.2); BASOPHIL % 0.8 % (0.0-2.0); EOSINOPHIL # 0.1 TH/MM3 (0-0.4); EOSINOPHIL % 1.1 % (0.0-4.0); HEMATOCRIT 33.6 % (35.0-46.0); HEMO FLAGS DIFF FINAL; LYMPH % 25.8 % (9.0-44.0); LYMPHOCYTE # 2.3 TH/MM3 (1.0-4.8); MEAN CELL VOLUME 78.1 FL (80.0-100.0); MEAN CORPUSCULAR HEMOGLOBIN 25.7 PG (27.0-34.0); MEAN CORPUSCULAR HGB CONC 32.9 % (32.0-36.0); MONO % 8.8 % (0.0-8.0); NEUT % 63.5 % (16.0-70.0); PLATELET COUNT 318 TH/MM3 (150-450); RED BLOOD COUNT 4.31 MIL/MM3 (4.00-5.30); RED CELL DISTRIBUTION WIDTH 17.1 % (11.6-17.2); WHITE BLOOD COUNT 8.8 TH/MM3 (4.0-11.0)
[2017-02-10 23:36] LABS: APTT (PATIENT) 24.1 SEC (24.3-30.1); PROTHROMBIN TIME - PATIENT 10.8 SEC (9.8-11.6)
[2017-02-10 23:47] LABS: BACTERIA, URINE MOD /hpf; BLOOD, URINE NEG (NEG); COMMENT (UR) CULTURE INDICATED; CULTURE IF INDICATED CULTURE INDICATED; GLUCOSE,URINE NEG (NEG); KETONE, URINE NEG (NEG); MUCUS URINE FEW /lpf (OCC); NITRITE,URINE NEG (NEG); PH, URINE 5.5 (5.0-8.5); SQUAMOUS EPITHELIAL CELL URINE 2 /hpf (0-5); URINE COLOR LIGHT-YELLOW (YELLW/STRAW)
[2017-02-10 23:50] LABS: ANION GAP 12 MEQ/L (5-15); AST (GOT) 15 U/L (15-37); BICARBONATE 22.1 MEQ/L (21.0-32.0); BLOOD UREA NITROGEN 13 MG/DL (7-18); CHLORIDE 106 MEQ/L (98-107); GLOMERULAR FILTRATION RATE 68 ML/MIN (>89); MAGNESIUM 2.3 MG/DL (1.5-2.5); POTASSIUM 3.4 MEQ/L (3.5-5.1); SODIUM (NA) 140 MEQ/L (136-145)
[2017-02-11] LABS: ALKALINE PHOSPHATASE 42 U/L (45-117); ALT (GPT) 17 U/L (10-53); CREATINE KINASE 126 U/L (26-192); TOTAL BILIRUBIN ADULT 0.4 MG/DL (0.2-1.0)
[2017-02-11 00:13] LABS: CKMB 0.8 NG/ML (0.5-3.6)
--- NOTE | 2017-02-11 00:39 | PD ---
HPI Chief Complaint: Abnormal Results Time Seen by Provider: 23:04 Travel History International Travel<30 days: No Contact w/Intl Traveler<30days: No Traveled to known affect area: No History of Present Illness HPI The patient is a 41 year old female who presents to the [facility] emergency department with a history of reportedly approximately a month ago beginning to have lightheaded sensation with the sensation of her heart racing after working out. The patient reports that she nearly passed out. She reports that she had an episode of vomiting associated with this. She reports that ambulance services were called and the patient was noted to be in an abnormal heart rhythm. She was admitted to the hospital for 3 days and underwent cardiac catheterization that was negative for coronary artery disease , and EPS studies with Dr. Benites that were reportedly unremarkable. She has had a 30 day Holter monitor in place. The patient reports that she had been afraid to start working out again, however she did work out again for the first time today at approximately 6 PM. She reports that she was doing boxing workout and during the workout she did have a brief episode of lightheaded sensation that improved with sitting for a few minutes. She reports that she was able to complete the workout. She was later called by Dr. Corrales the induction coordination engineer on-call who told her that she did experience an irregular heartbeat at approximately 6:20 PM and recommended that she reports to the emergency department for admission and continued evaluation. The patient reports that when she was admitted for 3 days previously she was started on metoprolol. She reports that when she was discharged home on that she began to have a rash and generalized weakness, therefore this was discontinued. She is taking a baby aspirin daily. The patient denies any recent fevers, cough congestion, neck pain, chest pain, shortness of breath, abdominal pain, vomiting , diarrhea, urinary symptoms, or neurologic symptoms. [facility] Past Medical History Narrative Medical The patient's past medical history is significant for an irregular heartbeat first diagnosed month ago. Heart Rhythm Problems: Yes (THIS ADMIT) Cardiovascular Problems: Yes Genitourinary: No Inguinal Hernia: Yes (RT 1986) Psychiatric: No Respiratory: No Migraines: Yes (NONE IN LAST 10 YRS) Seizures: No Tetanus Vaccination: Unknown Influenza Vaccination: No ?: Not : 5 Para: 3 Miscarriage: 2 : 0 Past Surgical History Narrative Surgical The patient's past surgical history is significant for right inguinal hernia repair, breast augmentation in 2004 and in 2010, cholecystectomy. Abdominal Surgery: Yes (R INGUINAL HERNIA) Cholecystectomy: Yes (04/09/2013) Other Surgery: Yes ( BREAST AUGMENTATION 2004 & 2010) Social History Alcohol Use: Yes (RARE) Tobacco Use: No Substance Use: No Allergies-Medications (Allergen,Severity, Reaction): Coded Allergies: Metoprolol (Verified Allergy, Mild, Rash, 02/11/17) Reported Meds & Prescriptions Reported Meds & Active Scripts Active Aspirin EC (Aspirin) 81 Mg Tabdr 81 Mg PO DAILY Review of Systems Except as stated in HPI: all other systems reviewed are Neg General / Constitutional: No: Fever Eyes: No: Visual changes HENT: Positive: Lightheadedness, No: Headaches Cardiovascular: Positive: Palpitations, No: Chest Pain or Discomfort Respiratory: No: Shortness of Breath Gastrointestinal: No: Abdominal Pain Genitourinary: No: Dysuria Musculoskeletal: No: Pain Skin: No Rash Neurologic: No: Weakness Psychiatric: No: Depression Endocrine: No: Polydipsia Hematologic/Lymphatic: No: Easy Bruising Physical Exam Narrative General: The patient is a well-developed well-nourished female in no acute distress. Head and Neck exam: Head is normocephalic atraumatic. Eyes: EOMI, pupils are equal round and reactive to light. Nose: Midline septum with pink mucous membranes Mouth: Dentition unremarkable. Moist mucus membranes. Posterior oropharynx is not erythematous. No tonsillar hypertrophy. Uvula midline. Airway patent. Neck: No palpable lymphadenopathy. No nuchal rigidity. No thyromegaly. Cardiovascular: Regular rate and rhythm without murmurs, gallops, or rubs. No pulse deficit to the extremities and simultaneous auscultation and palpation of her radial artery. Lungs: Clear to auscultation bilaterally. No wheezes, rhonchi, or rales. Abdomen: Soft, without tenderness to palpation in all 4 quadrants of the abdomen. No guarding, rebound, or rigidity. Normal bowel sounds are audible. No tenderness on palpation of McBurney's point. Extremities: No clubbing, cyanosis, or edema. 2+ pulses in all 4 extremities. No calf tenderness on palpation. Back: No costovertebral angle tenderness to palpation. Neurologic Exam: Grossly nonfocal. Skin Exam: No rash noted. Intact skin that is warm and dry. Data Data Last Documented VS Vital Signs Date Time Temp Pulse Resp B/P Pulse Ox O2 Delivery O2 Flow Rate FiO2 02/10/17 23:00 72 16 100 Room Air 02/10/17 21:42 99.0 137/89 Orders Electrocardiogram (02/10/17 23:04) Complete Blood Count With Diff (02/10/17 23:04) Comprehensive Metabolic Panel (02/10/17 23:04) Creatine Kinase (Cpk) (02/10/17 23:04) Ckmb (Isoenzyme) Profile (02/10/17 23:04) Troponin I (02/10/17 23:04) B-Type Natriuretic Peptide (02/10/17 23:04) Prothrombin Time / Inr (Pt) (02/10/17 23:04) Act Partial Throm Time (Ptt) (02/10/17 23:04) Lipase (02/10/17 23:04) Urinalysis - C+S If Indicated (02/10/17 23:04) Magnesium (Mg) (02/10/17 23:04) Thyroid Stimulating Hormone (02/10/17 23:04) Chest, Single Ap (02/10/17 23:04) Iv Access Insert/Monitor (02/10/17 23:04) Ecg Monitoring (02/10/17 23:04) Oximetry (02/10/17 23:04) Ed Urine Pregnancytest Poc (02/10/17 23:04) Urine Culture (02/10/17 23:00) CKMB (02/10/17 23:10) CKMB% (02/10/17 23:10) Admit Order (Ed Use Only) (02/11/17 01:14) Labs Laboratory Tests Test 02/10/17 02/10/17 23:00 23:10 Urine Color LIGHT-YELLOW Urine Turbidity CLEAR Urine pH 5.5 Urine Specific [place] 1.007 Urine Protein NEG mg/dL Urine Glucose (UA) NEG mg/dL Urine Ketones NEG mg/dL Urine Occult Blood NEG Urine Nitrite NEG Urine Bilirubin NEG Urine Urobilinogen LESS THAN 2.0 MG/DL Urine Leukocyte Esterase NEG Urine RBC LESS THAN 1 /hpf Urine WBC LESS THAN 1 /hpf Urine Squamous Epithelial 2 /hpf Cells Urine Bacteria MOD /hpf Urine Mucus FEW /lpf Microscopic Urinalysis Comment CULTURE INDICATED Urine Opiates Screen NEG Urine Barbiturates Screen NEG Urine Amphetamines Screen NEG Urine Benzodiazepines Screen NEG Urine Cocaine Screen NEG Urine Cannabinoids Screen NEG Prothrombin Time 10.8 SEC Prothromb Time International 1.0 RATIO Ratio Activated Partial 24.1 SEC Thromboplast Time White Blood Count 8.8 TH/MM3 Red Blood Count 4.31 MIL/MM3 Hemoglobin 11.1 GM/DL Hematocrit 33.6 % Mean Corpuscular Volume 78.1 FL Mean Corpuscular Hemoglobin 25.7 PG Mean Corpuscular Hemoglobin 32.9 % Concent Red Cell Distribution Width 17.1 % Platelet Count 318 TH/MM3 Mean Platelet Volume 8.0 FL Neutrophils (%) (Auto) 63.5 % Lymphocytes (%) (Auto) 25.8 % Monocytes (%) (Auto) 8.8 % Eosinophils (%) (Auto) 1.1 % Basophils (%) (Auto) 0.8 % Neutrophils # (Auto) 5.6 TH/MM3 Lymphocytes # (Auto) 2.3 TH/MM3 Monocytes # (Auto) 0.8 TH/MM3 Eosinophils # (Auto) 0.1 TH/MM3 Basophils # (Auto) 0.1 TH/MM3 CBC Comment DIFF FINAL Differential Comment Sodium Level 140 MEQ/L Potassium Level 3.4 MEQ/L Chloride Level 106 MEQ/L Carbon Dioxide Level 22.1 MEQ/L Anion Gap 12 MEQ/L Blood Urea Nitrogen 13 MG/DL Creatinine 0.91 MG/DL Estimat Glomerular Filtration 68 ML/MIN Rate Random Glucose 93 MG/DL Calcium Level 9.1 MG/DL Magnesium Level 2.3 MG/DL Total Bilirubin 0.4 MG/DL Aspartate Amino Transf 15 U/L (AST/SGOT) Alanine Aminotransferase 17 U/L (ALT/SGPT) Alkaline Phosphatase 42 U/L Total Creatine Kinase 126 U/L Creatine Kinase MB 0.8 NG/ML Troponin I LESS THAN 0.02 NG/ML B-Type Natriuretic Peptide 19 PG/ML Total Protein 7.6 GM/DL Albumin 4.3 GM/DL Lipase 101 U/L Thyroid Stimulating Hormone 2.550 uIU/ML 3rd Gen [facility] Medical Decision Making Medical Screen Exam Complete: Yes Emergency Medical Condition: Yes Medical Record Reviewed: Yes Interpretation(s) Last Impressions Chest X-Ray 02/10/17 0514 Signed Impressions: Service Date/Time: Friday, February 10, 2017 23:04 - CONCLUSION: No acute disease. Herb Carlson MD Differential Diagnosis Ventricular tachycardia, versus aberrant wide-complex atrial fibrillation, versus heart block Narrative Course During the course of the patients emergency department visit, the patients history, examination, and differential diagnosis were reviewed with the patient. The patient had IV access obtained and blood work sent for analysis. The patient was placed on a apartment locator with oximetry and blood pressure monitoring. An EKG was done on arrival. The patient's EKG shows a sinus rhythm heart rate of 71, nonspecific T-wave abnormalities, no acute ST segment elevation or depression. T waves are inverted in V1. The patients laboratory studies were reviewed and remarkable for a white count of 8.8, hemoglobin 11.1, platelets 318 with 8.8 monocytes, CMP was remarkable for potassium of 3.4 which was supplemented orally, alkaline phosphatase 42, CPK 126, troponin I less than 0.02, BNP 19, lipase 101, TSH 2.55, PT PTT unremarkable, urinalysis showed moderate bacteria, culture indicated. Radiology studies were reviewed and remarkable for a chest x-ray that showed no acute abnormality. The patients results were discussed with the patient, including the plan of care. I explained that further testing and/ or monitoring is indicated based on the patients history, examination, and/ or laboratory findings. Therefore, I recommended admission for additional evaluation. The patient expressed understanding and was agreeable with this plan. The patient was admitted to the hospital in stable condition and [facility] Physician Communication Physician Communication The patient's case was discussed with Dr. Stack who did agree to admit the patient for further evaluation and treatment at this time. Diagnosis Primary Impression: Cardiac arrhythmia Qualified Code: I49.9 - Cardiac arrhythmia, unspecified cardiac arrhythmia type Additional Impression: Wide-complex tachycardia Admitting Information Admitting Physician Requests: Admit Denise Adams MD Feb 11, 2017 00:39
[2017-02-11] MEDS ORDERED: POTASSIUM CHLORIDE 20 MEQ CONTROLLED RELEASE TAB PO ONE ×2 (01:30)
[2017-02-11] MEDS ORDERED: NALOXONE HCL 0.4 MG/ML AMP IV PRN (01:45)
[2017-02-11] MEDS ORDERED: SODIUM CHLORIDE 0.9% FLUSH 10 ML FLUSH IV FLUSH PRN (01:45)
[2017-02-11 01:52] LABS: AMPHETAMINE, URINE NEG (NEG); BARBITURATES, URINE NEG (NEG); COCAINE, URINE NEG (NEG)
--- NOTE | 2017-02-11 03:01 | HHI.HP ---
[facility] Danita Peterson Admission Diagnosis Episodic wide complex tachycardia Diagnoses: Chief Complaint: wide complex tachycardia with associated lightheaded feeling and heart pounding Travel History International Travel<30 Days: No Contact w/Intl Traveler <30 Da: No Traveled to Known Affected Are: No History of Present Illness This is a 41 year old female patient with a past medical history which includes seasonal allergies and wide complex tachycardia. Patient was seen here at [facility] approximately a month ago beginning to have lightheaded sensation with the sensation of her heart racing after working out. The patient reports that she nearly passed out. She was admitted to the hospital for 3 days and underwent cardiac catheterization that was negative for coronary artery disease, and EPS studies with Dr. Benites that were reportedly unremarkable. She has had a 30 day Holter monitor in place. The patient reports that she had been afraid to start working out again, however she did work out again for the first time today at approximately 6 PM. She reports that she was doing boxing workout and during the workout she did have a brief episode of feeling as though her heart was beating harder than normal associated with feeling lightheaded. Symptoms resolved with sitting and resting. She reports that she was able to complete the workout. She was later called by Dr. Corrales the survey rodman on-call who told her that she did experience an irregular heartbeat at approximately 6:20 PM and recommended that she reports to the emergency department for admission and continued evaluation. The patient reports that when she was discharged last month she was started on metoprolol, which was later discontinued secondary to rash. The patient denies any recent fevers, chills, cough, congestion, neck pain, chest pain, shortness of breath, abdominal pain, vomiting, diarrhea. Patient also denies recent travel or lower extremity edema. Denies taking any OTC supplements. Review of Systems Except as stated in HPI: all other systems reviewed are Neg Past Family Social History Past Medical History Patient denies any significant past medical history seasonal allergies Past Surgical History Right Inguinal hernia repair as a child Breast augmentation Cholecystectomy cardiac catheterization cardiac EP study Reported Medications Aspirin EC (Aspirin) 81 Mg Tabdr 81 Mg PO DAILY OTC Claritin Allergies: Coded Allergies: No Known Allergies (Verified , 06/04/13) Active Ordered Medications Current Medications Medications (Trade) Dose Ordered Sig/Kerry Route Start Time Stop Time Status Last Admin (NS Flush) 2 ml UNSCH PRN IV FLUSH 02/11/17 01:45 (NS Flush) 2 ml BID IV FLUSH 02/11/17 09:00 (Narcan Inj) 0.4 mg UNSCH PRN IV 02/11/17 01:45 (Ecotrin Ec) 81 mg DAILY PO 02/11/17 09:00 Family History father has HTN denies family medical history of sudden cardiac Social History Patient denies any tobacco use, alcohol consumption or illicit drug use. Physical Exam Vital Signs Vital Signs Date Time Temp Pulse Resp B/P Pulse Ox O2 Delivery O2 Flow Rate FiO2 02/10/17 23:00 72 16 100 Room Air 02/10/17 23:00 16 100 Room Air 02/10/17 21:42 99.0 78 16 137/89 100 Physical Exam GENERAL: This is a well-nourished, well-developed patient, in no apparent distress. SKIN: No rashes, ecchymoses or lesions. Cool and dry. HEAD: Atraumatic. Normocephalic. No temporal or scalp tenderness. EYES: Extraocular motions intact. No scleral icterus. No injection or drainage. ENT: Nose without bleeding, purulent drainage or septal hematoma. Throat without erythema, tonsillar hypertrophy or exudate. Uvula midline. Airway patent. NECK: Trachea midline. No JVD or lymphadenopathy. Supple, nontender, no meningeal signs. CARDIOVASCULAR: Regular rate and rhythm without murmurs, gallops, or rubs. RESPIRATORY: Clear to auscultation. Breath sounds equal bilaterally. No wheezes , rales, or rhonchi. GASTROINTESTINAL: Abdomen soft, non-tender, nondistended. No guarding. MUSCULOSKELETAL: Extremities without clubbing, cyanosis, or edema. No joint tenderness, effusion, or edema noted. No calf tenderness. Negative Homans sign bilaterally. NEUROLOGICAL: Awake and alert. No focal deficits. Motor and sensory grossly within normal limits. Five out of 5 muscle strength in all muscle groups. Normal speech. Laboratory Laboratory Tests Test 02/10/17 02/10/17 23:00 23:10 Urine Color LIGHT-YELLOW Urine Turbidity CLEAR Urine pH 5.5 Urine Specific [place] 1.007 Urine Protein NEG Urine Glucose (UA) NEG Urine Ketones NEG Urine Occult Blood NEG Urine Nitrite NEG Urine Bilirubin NEG Urine Urobilinogen LESS THAN 2.0 Urine Leukocyte Esterase NEG Urine RBC LESS THAN 1 Urine WBC LESS THAN 1 Urine Squamous Epithelial 2 Cells Urine Bacteria MOD Urine Mucus FEW Microscopic Urinalysis Comment CULTURE INDICATED Urine Opiates Screen NEG Urine Barbiturates Screen NEG Urine Amphetamines Screen NEG Urine Benzodiazepines Screen NEG Urine Cocaine Screen NEG Urine Cannabinoids Screen NEG Prothrombin Time 10.8 Prothromb Time International 1.0 Ratio Activated Partial 24.1 Thromboplast Time White Blood Count 8.8 Red Blood Count 4.31 Hemoglobin 11.1 Hematocrit 33.6 Mean Corpuscular Volume 78.1 Mean Corpuscular Hemoglobin 25.7 Mean Corpuscular Hemoglobin 32.9 Concent Red Cell Distribution Width 17.1 Platelet Count 318 Mean Platelet Volume 8.0 Neutrophils (%) (Auto) 63.5 Lymphocytes (%) (Auto) 25.8 Monocytes (%) (Auto) 8.8 Eosinophils (%) (Auto) 1.1 Basophils (%) (Auto) 0.8 Neutrophils # (Auto) 5.6 Lymphocytes # (Auto) 2.3 Monocytes # (Auto) 0.8 Eosinophils # (Auto) 0.1 Basophils # (Auto) 0.1 CBC Comment DIFF FINAL Differential Comment Sodium Level 140 Potassium Level 3.4 Chloride Level 106 Carbon Dioxide Level 22.1 Anion Gap 12 Blood Urea Nitrogen 13 Creatinine 0.91 Estimat Glomerular Filtration 68 Rate Random Glucose 93 Calcium Level 9.1 Magnesium Level 2.3 Total Bilirubin 0.4 Aspartate Amino Transf 15 (AST/SGOT) Alanine Aminotransferase 17 (ALT/SGPT) Alkaline Phosphatase 42 Total Creatine Kinase 126 Creatine Kinase MB 0.8 Troponin I LESS THAN 0.02 B-Type Natriuretic Peptide 91 Total Protein 7.6 Albumin 4.3 Lipase 101 Thyroid Stimulating Hormone 2.550 3rd Gen Date/Time Procedure Status Source Growth 02/10/17 23:00 Urine Culture Received Urine Clean Catch Pending Result Diagram: 02/10/17 23102/10/172309 Imaging Last Impressions Chest X-Ray 02/10/172303 Signed Impressions: Service Date/Time: Friday, February 10, 2017 23:04 - CONCLUSION: No acute disease. Herb Carlson MD Assessment and Plan Problem List: (1) Wide-complex tachycardia ICD Code: I47.2 Status: Acute Assessment and Plan This is a 41 year old female patient with a past medical history which includes seasonal allergies and wide complex tachycardia. She has had a 30 [address] monitor in place. The patient reports that she had been afraid to start working out again, however she did work out again for the first time today at approximately 6 PM. She reports that she was doing boxing workout and during the workout she did have a brief episode of feeling as though her heart was beating harder than normal associated with feeling lightheaded. wide complex tachycardia urine drug screen negative continuous telemetry cardiology consult aspirin daily Hypokalemia with magnesium of 2.3 replaced potassium repeat BMP in AM DVT prophylaxis- SCDs Discussed with ER provider, nursing, patient Written by Shelley Kwan, acting as scribe for Dr. Stack on 02/11/17 at 03: 11. All or portions of this note were transcribed by scribe [ Shelley Kwan] . I, Dr. Edna Stack personally performed the history, physical exam, and medical decision making; and confirmed the accuracy of the information in the transcribed note. Authenticated by Dr. Edna Stack on02/11/17 at 03:11. Discussed Condition With patient, er Shelley Simms Feb 11, 2017 03:01 Edna Stack MD Feb 11, 2017 07:27
[2017-02-11 03:45] VITALS: PULSE 66
[2017-02-11 05:19] VITALS: BP 101/52; PULSE 73; RESP 18; TEMP 99; O2SAT 98
[2017-02-11 07:50] VITALS: BP 94/54; PULSE 100; RESP 19; TEMP 96.6; O2SAT 98
[2017-02-11] MEDS ORDERED: SODIUM CHLORIDE 0.9% FLUSH 10 ML FLUSH IV FLUSH SCH (09:00)
[2017-02-11] MEDS ORDERED: ASPIRIN EC 81 MG TABEC PO SCH (09:00)
--- NOTE | 2017-02-11 09:24 | HHI.PR ---
Subjective Remarks Follow-up for arrhythmia. The patient states that she is being evaluated for an arrhythmia. She previously had an episode of heart racing with admission and workup a few weeks ago. She states that she had a 30 day event monitor placed. The initial arrhythmia she was having occurred during and after workouts. She had not tried to work out since her previous admission until yesterday. She states that during the workout yesterday she had an episode where her heart was pounding and she was a little lightheaded, which improved with rest and then she continued to finish the workout. Shortly after the workup, she was called by the on-call overlock hemmer and told to come to the ED due to an arrhythmia seen on the 30 day event monitor. She did not have the sensation of heart racing like she did during her previous episodes. She denies any chest pain or shortness of breath. She denies any further episodes overnight. He attempted to start her metoprolol last Friday, but she began having a whole body rash on which worsened Friday, and resolved Friday after she stopped taking the metoprolol. Objective Vitals Vital Signs Date Time Temp Pulse Resp B/P Pulse Ox O2 Delivery O2 Flow Rate FiO2 02/11/17 07:50 96.6 100 19 94/54 98 02/11/17 05:19 99.0 73 18 101/52 98 02/11/17 03:45 66 02/10/17 23:00 72 16 100 Room Air 02/10/17 23:00 16 100 Room Air 02/10/17 21:42 99.0 78 16 137/89 100 Result Diagram: 02/10/17230902/10/172309 Imaging Last Impressions Chest X-Ray 02/10/172303 Signed Impressions: Service Date/Time: Friday, February 10, 2017 23:04 - CONCLUSION: No acute disease. Herb Carlson MD Objective Remarks GENERAL: Well-developed well-nourished. In no acute distress. SKIN: Warm and dry. No lesions noted. HEENT: Normocephalic. Pupils equal and round. Mucous membranes pink and moist. CARDIOVASCULAR: Regular rate and rhythm. No murmur appreciated. RESPIRATORY: No accessory muscle use. Clear to auscultation. Breath sounds equal bilaterally. GASTROINTESTINAL: Abdomen soft, non-tender, nondistended. Bowel sounds x4. MUSCULOSKELETAL: No obvious deformities. No clubbing or cyanosis. No edema. NEUROLOGICAL: Awake and alert. No focal neurological deficits. Moves upper and lower extremities spontaneously. Normal speech. PSYCHIATRIC: Appropriate mood and affect; insight and judgment normal. A/P Problem List: (1) Wide-complex tachycardia ICD Code: I47.2 Status: Acute Assessment and Plan This is a 41 year old female patient with a past medical history which includes seasonal allergies and wide complex tachycardia. She has had a 30 day Holter monitor in place. The patient reports that she had been afraid to start working out again, however she did work out again for the first time today at approximately 6 PM. She reports that she was doing boxing workout and during the workout she did have a brief episode of feeling as though her heart was beating harder than normal associated with feeling lightheaded. wide complex tachycardia urine drug screen negative continuous telemetry, reviewed and unremarkable at the time of evaluation cardiology consulted aspirin daily Adverse reaction to metoprolol Hypokalemia, K+ 3.4 with magnesium of 2.3 replaced potassium orally Monitor Abnormal UA, doubt infection Monitor off antibiotics and follow-up urine culture DVT prophylaxis- SCDs Discharge Planning Follow-up cardiology recommendations. Jose R Soler Feb 11, 2017 09:24 Naima Waite DO Feb 11, 2017 16:56
--- NOTE | 2017-02-11 11:37 | EKG ---
Date Performed: 02/10/2017 Time Performed: 23:12:37 PTAGE: 41 years EKG: Sinus rhythm NONSPECIFIC T-WAVE ABNORMALITY BORDERLINE ECG NO PREVIOUS TRACING DOCTOR: Domingo Mauricio Interpretating Date/Time 02/11/2017 11:34:38
[2017-02-11 11:43] VITALS: BP 89/51; PULSE 68; RESP 18; TEMP 97.8; O2SAT 98
[2017-02-11 15:29] VITALS: BP 102/62; PULSE 68; RESP 19; TEMP 97.8; O2SAT 97
[2017-02-11 19:58] VITALS: BP 108/59; PULSE 78; RESP 18; TEMP 98.9; O2SAT 95
--- NOTE | 2017-02-11 20:11 | HHI.PR ---
Subjective Remarks Patient sitting up in bed appears to be in no acute distress. Patient denies further palpitations lightheaded or dizzy feeling. Requesting to be discharged home offers no complaints at this time. Objective Vitals Vital Signs Date Time Temp Pulse Resp B/P Pulse Ox O2 Delivery O2 Flow Rate FiO2 02/11/17 15:29 97.8 68 19 102/62 97 02/11/17 11:43 97.8 68 18 89/51 98 02/11/17 07:50 96.6 100 19 94/54 98 02/11/17 05:19 99.0 73 18 101/52 98 02/11/17 03:45 66 02/10/17 23:00 72 16 100 Room Air 02/10/17 23:00 16 100 Room Air 02/10/17 21:42 99.0 78 16 137/89 100 Result Diagram: 02/10/17230902/10/172309 Objective Remarks GENERAL: Well-developed well-nourished. In no acute distress. SKIN: Warm and dry. No lesions noted. HEENT: Normocephalic. Pupils equal and round. Mucous membranes pink and moist. CARDIOVASCULAR: Regular rate and rhythm. No murmur appreciated. RESPIRATORY: No accessory muscle use. Clear to auscultation. Breath sounds equal bilaterally. GASTROINTESTINAL: Abdomen soft, non-tender, nondistended. Bowel sounds x4. MUSCULOSKELETAL: No obvious deformities. No clubbing or cyanosis. No edema. NEUROLOGICAL: Awake and alert. No focal neurological deficits. Moves upper and lower extremities spontaneously. Normal speech. PSYCHIATRIC: Appropriate mood and affect; insight and judgment normal. A/P Problem List: (1) Wide-complex tachycardia ICD Code: I47.2 Status: Acute Assessment and Plan This is a 41 year old female patient with a past medical history which includes seasonal allergies and wide complex tachycardia. She has had a 30 [address] monitor in place. The patient reports that she had been afraid to start working out again, however she did work out again for the first time today at approximately 6 PM. She reports that she was doing boxing workout and during the workout she did have a brief episode of feeling as though her heart was beating harder than normal associated with feeling lightheaded. wide complex tachycardia urine drug screen negative continuous telemetry, reviewed and unremarkable at the time of evaluation cardiology consulted- Cleared for DC per Dr. 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 Patient verbalized understanding of instructions Discussed with patient and family members present at bedside Patient discharged home in stable condition with follow-up instructions on a regular diet, activity per cardiology recommendations Discussed with Shelley Esquivel Feb 11, 2017 20:11
--- NOTE | 2017-02-11 20:28 | MB ---
cc: SABINE STEVE M.D. DATE OF CONSULTATION 02/11/2017 Electrophysiology consultation REASON FOR CONSULTATION Wide complex tachyarrhythmia. HISTORY OF THE PRESENT ILLNESS Ms. Harper is a 41-year-old female with history of wide complex tachyarrhythmia, previous hospitalization, negative electrophysiology study, unable to tolerate beta sarthak. She has a 30-day monitor. She was exercising yesterday developed dizziness. Monitor recorded wide complex tachyarrhythmia with a rate of around 18o-200 beats per minute. She was brought to the emergency room and this resolved before she got to the emergency room. Since then she is in sinus rhythm. She was monitored the whole day, no tachyarrhythmia observed. I was consulted for evaluation. The chart was reviewed. The patient was evaluated. ALLERGIES None. SOCIAL HISTORY Negative for smoking and drinking. FAMILY HISTORY Noncontributory to her current medical condition. MEDICATIONS She is on aspirin. REVIEW OF SYSTEMS Currently she refers no chest pain, no chest discomfort. No vomiting. No fever. PHYSICAL EXAMINATION GENERAL: Alert, fully oriented. VITAL SIGNS: Blood pressure 102/62, pulse 60, respiratory rate 18. LUNGS: Ventilated. CARDIOVASCULAR: S1-S2 regular. No gallop. ABDOMEN: Soft. No mass. No bruit. EXTREMITIES: No edema. Electrocardiogram sinus rhythm. No pre-excitation. No acute ST and T-wave changes. LABORATORY DATA Hemoglobin 11.1, white blood cell 8.8. Potassium 3.4, creatinine is 0.91. Troponin 0.02. TSH 2.55. ASSESSMENT AND RECOMMENDATIONS Ms. Harper has another episode of wide complex tachyarrhythmia. Electrophysiology study was performed. Isuprel was used, no tachyarrhythmia was induced. 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 There is no change of axis, that why it is difficult for me to call it ventricular tachycardia. It may be also atrial fibrillation with aberrancy at the termination. Apparently there is some atrial fibrillation in two or three beats, then the patient back into sinus rhythm. I had a very, very long conversation. I spent over 40 minutes in the room with her and her and her mother. Explaining all the different types of arrhythmia. I did explain to them I cannot ablate because I am not sure the nature of the palpitation. I discuss with them the option of pulmonary vein isolation, if this is the case tachyarrhythmia would stop but if not she will still have the palpitation. And also I discussed with them the option of referring them to [facility] for evaluation. At this point my recommendation is to discharge her home. Continue observation. She cannot tolerate beta sarthak. She has a lot of reaction to beta sarthak. Cannot tolerate calcium channel sarthak neither. I advised her not to intensively exercise and follow up as an outpatient. MD DAVID Shepard/KK /7:58 PM /8:09 PM
== END 2017-02-11 21:12 | disposition home or self-care (01) ==
LOC: NEPC 21:40 → NEDA 02-11 01:15 → NEPGCP 02-11 03:29
PROVIDERS: ADMIT Hospitalist; ATTEND Hospitalist
DX: I49.9 Cardiac arrhythmia, unspecified (principal); R11.10 Vomiting, unspecified; I47.2 Ventricular tachycardia; E87.6 Hypokalemia; R94.31 Abnormal electrocardiogram [ECG] [EKG]
CPT/HCPCS: 71010; 80053; 80307; 81001; 82550; 82552; 83690; 83735; 83880; 84443; 84484; 84703; 85025; 85610; 85730; 87086; 93005; 99285; G0378

== ENCOUNTER 2018-07-22 20:01 | Observation (INO) ==
[2018-07-22] MEDS ORDERED: Dexamethasone Inj 20 MG/5 ML Vial IV.PUSH ONE (20:29)
--- NOTE | 2018-07-22 20:29 | ED ---
HPI General Chief Complaint: Chest Pain Stated Complaint: Evac/chest Pain Time Seen by Provider: 07/22/18 20:07 Source: patient Mode of arrival: ambulatory Limitations: no limitations History of Present Illness HPI narrative: Patient is a 42-year-old female with history of migraine headaches, history of exercise-induced ventricular tachycardia with history of 2 ablations in the past by Dr. Bustillos at the [facility]. Patient reports that she was sitting down around 6 PM when all of a sudden she began to have a headache. Patient reports that her headache went from the front of her head to the back of her head, reports that is diffuse in nature, denies any vision changes with this. Reports that her symptoms today feels different from her typical migraine headache. Reports that she began to have chest pain which felt like a tightness throughout her whole chest. Patient reports that she felt as if she was going to pass out. Patient did have nausea and did vomit multiple times, she called EMS and when he arrived, she was given a dose of Zofran as well as sublingual nitroglycerin. Patient reports that she does still have some tightness in her chest, it is nonspecific in nature. Currently reports that the only medication he takes is Zyrtec. Patient denies smoking or recreational alcohol ingestion, no other cardiac history except for her exercise -induced ventricular tachycardia. Related Data Home Medications Medication Instructions Recorded Confirmed cetirizine [Zyrtec] 10 mg PO DAILY 07/22/18 07/22/18 Allergies Allergy/AdvReac Type Severity Reaction Status Date / Time metoprolol Allergy Mild Rash Verified 07/22/18 20:15 Review of Systems ROS: all other systems reviewed are negative [facility] Medical History Medical History Hx of migraines (Acute) Ventricular tachycardia (Acute) Surgical History Surgical History History of cholecystectomy (Acute) Hx of prior ablation treatment (Acute) Social History Social History Substance History: No History of Abuse Second Hand Smoke Exposure: No Smoking Status: Never smoker How Often Do You Have a Drink Containing Alcohol: Monthly or less Recent Travel in [facility] within the Last 8 Weeks: No Recent Out of Country Travel within the Last 8 Weeks: No Immunization History Tetanus Immunization: Unsure Hx Influenza Vaccine This Season: Yes Exam Narrative Exam Narrative: GENERAL: Mild distress SKIN: Focused skin assessment warm/dry. HEAD: Atraumatic. Normocephalic. EYES: Pupils equal and round. No scleral icterus. No injection or drainage. ENT: No nasal bleeding or discharge. Mucous membranes pink and moist. NECK: Trachea midline. No JVD. CARDIOVASCULAR: Regular rate and rhythm. No murmur appreciated. RESPIRATORY: No accessory muscle use. Clear to auscultation. Breath sounds equal bilaterally. GASTROINTESTINAL: Abdomen soft, non-tender, nondistended. Hepatic and splenic margins not palpable. MUSCULOSKELETAL: No obvious deformities. No clubbing. No cyanosis. No edema. NEUROLOGICAL: Awake and alert. No obvious cranial nerve deficits. Motor grossly within normal limits. Normal speech. CN 2-12 grossly intact with no neurological deficits PSYCHIATRIC: Appropriate mood and affect; insight and judgment normal. Course Initial Documented Vital Signs Temperature 97.9 F 07/22/18 20:07 Pulse Rate 66 07/22/18 20:07 Respiratory Rate 15 07/22/18 20:07 Blood Pressure 112/76 07/22/18 20:07 Pulse Oximetry 100 07/22/18 20:07 Last Documented Vital Signs Temperature 97.9 F 07/22/18 20:07 Pulse Rate 74 07/22/18 22:35 Respiratory Rate 17 07/22/18 22:35 Blood Pressure 101/58 L 07/22/18 22:35 Pulse Oximetry 98 07/22/18 22:35 Medical Decision Making MDM Narrative Medical decision making narrative: During the course of the patients emergency department visit, the patients history, examination, and differential diagnosis were reviewed with the patient. The patient was placed on a panel monitor with oximetry and frequent blood pressure monitoring. The patient had an IV access obtained and blood work sent for analysis. The patient was initially provided IVF as well as migraine cocktail labs reviewed, first set of trop less than 0.02 ct of head: no acute findings CTA ordered to evaluate for possible aneurysm, her headache has improved, discussed need to obtain LP if symptoms do not improve and CTA inconclusive - patient will think about it. CTA of head and neck were reviewed, patient with no evidence of aneurysm. Patient is feeling much better, LP was offered to rule out SAH, patient refuses LP as she is feeling better. Patient with most likely symptoms of migraine headache. Plan to observe patient in the chest pain unit, she is currently chest pain- free. Medical Screen Exam Complete: Yes Emergency Medical Condition: Yes Differential Diagnosis Differential Diagnosis: Migraine headache, cephalgia, subarachnoid hemorrhage, ACS, arrhythmia, electrolyte abnormality, dissection Medical Records Medical records reviewed: Yes I reviewed the patient's medical records. Lab Data Result diagrams: 07/22/18 20:15 07/22/18 20:15 POC Results POC Urine Results Negative Lab Results 07/22/18 07/22/18 07/22/18 Range/Units 20:15 20:15 20:15 WBC 8.1 (4.0-11.0) th/mm3 RBC 3.91 L (4.00-5.30) mil/mm3 Hgb 11.3 L (11.6-15.3) gm/dL Hct 33.2 L (35.0-46.0) % MCV 84.9 (80.0-100.0) fL MCH 28.8 (27.0-34.0) pg MCHC 33.9 (32.0-36.0) % RDW 14.0 (11.6-17.2) % Plt Count 322 (150-450) th/mm3 MPV 7.5 (7.0-11.0) fL Neut % (Auto) 71.7 H (16.0-70.0) % Lymph % (Auto) 19.7 (9.0-44.0) % Jay % (Auto) 7.3 (0.0-8.0) % Eos % (Auto) 0.9 (0.0-4.0) % Baso % (Auto) 0.4 (0.0-2.0) % Neut # (Auto) 5.8 (1.8-7.7) th/mm3 Lymph # (Auto) 1.6 (1.0-4.8) th/mm3 Jay # (Auto) 0.6 (0.0-0.9) th/mm3 Eos # (Auto) 0.1 (0.0-0.4) th/mm3 Baso # (Auto) 0.0 (0.0-0.2) th/mm3 WBC Differential . Differential Comment Auto diff final PT (9.8-11.6) sec INR Ratio APTT (24.3-30.1) sec Sodium 141 (136-145) meq/L Potassium 3.6 (3.5-5.1) meq/L Chloride 105 (98-107) meq/L Carbon Dioxide 26.1 (21.0-32.0) meq/L Anion Gap 10 (5-15) meq/L BUN 22 H (7-18) mg/dL Creatinine 0.89 (0.50-1.00) mg/dL Estimated GFR 70 L (>89) mL/min Random Glucose 106 (74-106) mg/dL Calcium 8.8 (8.5-10.1) mg/dL Total Bilirubin 0.4 (0.2-1.0) mg/dL AST 11 L (15-37) U/L ALT 16 (10-53) U/L Alkaline Phosphatase 43 L (45-117) U/L Total Creatine Kinase (26-192) U/L Troponin I Less than 0.02 L (0.02-0.05) ng/mL B-Natriuretic Peptide 13 (0-100) pg/mL Total Protein 7.2 (6.4-8.2) g/dL Albumin 3.9 (3.4-5.0) g/dL Lipase 115 (73-393) U/L 07/22/18 07/22/18 Range/Units 20:15 20:15 WBC (4.0-11.0) th/mm3 RBC (4.00-5.30) mil/mm3 Hgb (11.6-15.3) gm/dL Hct (35.0-46.0) % MCV (80.0-100.0) fL MCH (27.0-34.0) pg MCHC (32.0-36.0) % RDW (11.6-17.2) % Plt Count (150-450) th/mm3 MPV (7.0-11.0) fL Neut % (Auto) (16.0-70.0) % Lymph % (Auto) (9.0-44.0) % Jay % (Auto) (0.0-8.0) % Eos % (Auto) (0.0-4.0) % Baso % (Auto) (0.0-2.0) % Neut # (Auto) (1.8-7.7) th/mm3 Lymph # (Auto) (1.0-4.8) th/mm3 Jay # (Auto) (0.0-0.9) th/mm3 Eos # (Auto) (0.0-0.4) th/mm3 Baso # (Auto) (0.0-0.2) th/mm3 WBC Differential Differential Comment PT 10.6 (9.8-11.6) sec INR 1.0 Ratio APTT 19.4 L (24.3-30.1) sec Sodium (136-145) meq/L Potassium (3.5-5.1) meq/L Chloride (98-107) meq/L Carbon Dioxide (21.0-32.0) meq/L Anion Gap (5-15) meq/L BUN (7-18) mg/dL Creatinine (0.50-1.00) mg/dL Estimated GFR (>89) mL/min Random Glucose (74-106) mg/dL Calcium (8.5-10.1) mg/dL Total Bilirubin (0.2-1.0) mg/dL AST (15-37) U/L ALT (10-53) U/L Alkaline Phosphatase (45-117) U/L Total Creatine Kinase 70 (26-192) U/L Troponin I (0.02-0.05) ng/mL B-Natriuretic Peptide (0-100) pg/mL Total Protein (6.4-8.2) g/dL Albumin (3.4-5.0) g/dL Lipase (73-393) U/L Imaging Data Attestation: I personally reviewed and interpreted this imaging study as follows : Radiologist's impression: Neck CTA 07/22/18 00:00 CONCLUSION: 1. Normal carotid arteries. Chest X-Ray 07/22/18 20:07 CONCLUSION: No acute cardiopulmonary disease Head CT 07/22/18 20:28 CONCLUSION: 1. No acute intracranial abnormality . Head CTA 07/22/18 21:36 CONCLUSION: 1. No large vessel stenosis or aneurysm. 2. Normal variants as above. ECG Data EKG Prior to Arrival: Yes Attestation: I personally reviewed and interpreted this ECG as follows: Prior ECG tracings: not available for review Interpretation: EKG at 2015: NSR at 65bpm, qt/qtc: 422/433, no acute st or t wave changes Discharge Plan Discharge Disposition Patient Disposition: 30 Still Patient Discharge Condition Condition: Stable Discharge Details Diagnosis: Chest pain, Cephalgia Physicians Team ED Provider: Ghazal Nickerson Primary Care Provider: Danita Peterson Rxs /Orders / Referrals /Forms Prescriptions: No Action cetirizine [Zyrtec] 10 mg Tablet 10 mg PO DAILY RF: 0 Discharge Instructions Patient Printed Instructions: Chest Pain (ED) Status ED Status: With Doctor
[2018-07-22] MEDS ORDERED: Sod Chloride 0.9% Inj 1,000 ML IV.SIG SCH (20:30)
[2018-07-22 20:51] LABS: Baso % (Auto) 0.4 % (0.0-2.0); Eos # (Auto) 0.1 th/mm3 (0.0-0.4); Eos % (Auto) 0.9 % (0.0-4.0); Hematocrit 33.2 % (35.0-46.0); Hemoglobin 11.3 gm/dL (11.6-15.3); Lymph # (Auto) 1.6 th/mm3 (1.0-4.8); Lymph % (Auto) 19.7 % (9.0-44.0); Mean Corpuscular HGB Conc 33.9 % (32.0-36.0); Mean Corpuscular Hemoglobin 28.8 pg (27.0-34.0); Mean Corpuscular Volume 84.9 fL (80.0-100.0); Mean Platelet Volume 7.5 fL (7.0-11.0); Mono # (Auto) 0.6 th/mm3 (0.0-0.9); Mono % (Auto) 7.3 % (0.0-8.0); Neut # (Auto) 5.8 th/mm3 (1.8-7.7); Neut % (Auto) 71.7 % (16.0-70.0); Platelet Count 322 th/mm3 (150-450); Red Blood Count 3.91 mil/mm3 (4.00-5.30); White Blood Count 8.1 th/mm3 (4.0-11.0)
[2018-07-22 21:06] LABS: Albumin 3.9 g/dL (3.4-5.0); Anion Gap 10 meq/L (5-15); Aspartate Aminotransferase 11 U/L (15-37); Blood Urea Nitrogen 22 mg/dL (7-18); Calcium 8.8 mg/dL (8.5-10.1); Carbon Dioxide 26.1 meq/L (21.0-32.0); Chloride 105 meq/L (98-107); Glomerular Filtration Rate 70 mL/min (>89); Glucose,Random 106 mg/dL (74-106); Lipase 115 U/L (73-393); Potassium 3.6 meq/L (3.5-5.1); Sodium 141 meq/L (136-145)
[2018-07-22 21:07] LABS: Alanine Aminotransferase 16 U/L (10-53)
[2018-07-22 21:10] LABS: Alkaline Phosphatase 43 U/L (45-117); Total Protein 7.2 g/dL (6.4-8.2)
[2018-07-22 21:11] LABS: Activated Partial Thrombo Time 19.4 sec (24.3-30.1); Prothrombin Time 10.6 sec (9.8-11.6)
[2018-07-22] MEDS ORDERED: Ketorolac Inj 30 MG/ML (IVP) Vial IV.PUSH ONE (23:07)
[2018-07-23 00:17] LABS: Creatine Kinase 74 U/L (26-192)
[2018-07-23 05:35] LABS: Creatine Kinase 83 U/L (26-192)
--- NOTE | 2018-07-23 14:09 | ECG ---
Date Performed: 07/23/2018 Time Performed: 03:05:21 PTAGE: 42 years EKG: Sinus rhythm NORMAL ECG PREVIOUS TRACING : 07/23/2018 00.47 Since previous tracing, no significant change noted DOCTOR: Nima Tello Interpretating Date/Time 07/23/2018 14:08:56
--- NOTE | 2018-07-23 14:10 | ECG ---
Date Performed: 07/23/2018 Time Performed: 00:47:21 PTAGE: 42 years EKG: Sinus rhythm ARM LEADS REVERSED ATYPICAL ECG NO PREVIOUS TRACING DOCTOR: Nima Tello Interpretating Date/Time 07/23/2018 14:09:03
--- NOTE | 2018-07-23 14:10 | ECG ---
Date Performed: 07/22/2018 Time Performed: 20:15:15 PTAGE: 42 years EKG: Sinus rhythm NORMAL ECG PREVIOUS TRACING : 02/10/2017 23.12 Since previous tracing, no significant change noted DOCTOR: Nima Tello Interpretating Date/Time 07/23/2018 14:09:24
== END 2018-07-23 09:26 | disposition home or self-care (01) ==
LOC: NEPE 20:01 → NEDA 20:01 → NEPFCDU 07-23 00:16
PROVIDERS: ADMIT Internal Medicine Cardiovascular Disease; ATTEND Internal Medicine Cardiovascular Disease
DX: R07.89 Other chest pain; I47.2 Ventricular tachycardia; R53.83 Other fatigue; G43.909 Migraine, unspecified, not intractable, without status migrainosus; Z90.49 Acquired absence of other specified parts of digestive tract